=== PATIENT | female | born 1990 | race Caucasian/White ===

== ENCOUNTER 2020-08-28 10:17 | Emergency (ER) | payer OTHER, SELFPAY ==
[2020-08-28 10:27] VITALS: BP 99/82; PULSE 83; RESP 16; TEMP 35.6; O2SAT 99
[2020-08-28 10:37] VITALS: BP 99/82; PULSE 83; RESP 16; TEMP 35.6; O2SAT 99
--- NOTE | 2020-08-28 10:38 | ED.GENADULT ---
HPI - General Adult General Chief complaint: Skin/Abscess/Foreign Body Stated complaint: Swollen left side of face Time Seen by Provider: 08/28/20 10:39 Source: patient, family and RN notes reviewed Mode of arrival: ambulatory Limitations: no limitations History of Present Illness HPI narrative: 30 year old female who [facility] with 3-day history of abscess to her left lateral neck below jaw line. Patient states that area was original a pimple which she picked that has increased in size with discomfort and swelling. She states that she applied Prid to abscess area and it developed a center scab which she pulled off with some bloody drainage noted from wound. Patient was just at [facility] for detox and received oral antibiotic of Augmentin which she has been taking for the past 2 days. Patient signed herself out of [place] and she is suppose to go to [facility] to start their program on Sunday. She admits to using IV heroin since leaving [place]. MD complaint: abscesses left side of neck Onset (ago): day(s) (3) Location: neck (left side) Severity: moderate and severe Severity scale (1-10): 8 Quality: aching Pain Consistency: constant Treatments prior to arrival: other (antibiotic of Augmentin for 2 days also applied Prid to abscess.) Related Data Home Medications Medication Instructions Recorded Confirmed amoxicillin-pot clavulanate 1 tablet PO Q12H 08/28/20 08/28/20 [Augmentin] Allergies Allergy/AdvReac Type Severity Reaction Status Date / Time No Known Allergies Allergy Verified 08/28/20 12:15 Review of Systems Review of Systems: Narrative: CONSTITUTIONAL: Denies any known fever, chills, or sweats. EYES: Denies visual changes, redness, or discharge. ENT: Denies rhinorrhea, congestion, sore throat, or otalgia. CARDIOVASCULAR: Denies chest pain, palpitations, or edema. RESPIRATORY: Denies cough or dyspnea. GASTROINTESTINAL: Denies abdominal pain, nausea, vomiting, or diarrhea. GENITOURINARY: Denies dysuria or hematuria. SKIN: Denies rash or itching Positive for 3cm diameter abscess to her left lateral neck with center yellowish where she had pulled scab off,has red enlarged lymph node chain which is firm to palpation under abscess into lower neck. MUSCULOSKELETAL: Denies back pain, joint pain, or myalgia. NEUROLOGIC: Denies headache, numbness, or weakness. PSYCHIATRIC: Positive for anxiety or depression. All systems reviewed & are unremarkable except as noted in HPI and below PMFSH Past Medical History Medical History (Updated 08/30/20 @ 19:42 by Janine Tompkins NP) Substance abuse Family History Family History (Updated 08/30/20 @ 19:56 by Janine Tompkins NP) Other Hypertension Social History Social History (Updated 08/30/20 @ 19:57 by Janine Tompkins NP) Tobacco type: e-cigarettes/vaping Alcohol intake: current Substance use: current Substance use type: heroin Living arrangements: with friend(s) Gender identity (if verbalized by the patient): Female Comments At time of signature agree with nursing documentation of past medical surgical social and family history. There is no relevant family history pertinent to presenting complaint. Exam Narrative: Exam Narrative: GENERAL: Well-appearing, well-nourished, and in no acute distress. HEAD: Normocephalic, atraumatic. EYES: PERRLA and EOMI. ENT: Nares clear, no rhinorrhea or epistaxis. Mucous membranes moist. NECK: Supple red swollen firm lymphadenopathy below 3cm circular abscess on left neck CHEST: Clear to auscultation. No respiratory distress. SAO2 99% on room air HEART: Regular rate and rhythm. No murmur heard. Normal peripheral pulses. ABDOMEN: Soft, nontender, nondistended, normal active bowel sounds. EXTREMITIES: Normal range of motion. No edema. SKIN: Warm, dry, 3cm circular abscess to left lateral neck below jaw which has yellow center where patient states she pulled a scab off, tissue has induration. no drainage noted.
--- NOTE | 2020-08-28 10:51 | PC.NURSE ---
[id number] was able to manufacturing storeperson at home to check information on abx. was augmentin [id number]
== END 2020-08-28 11:10 | disposition short-term general hospital (02) ==
LOC: EXPCOLL 10:23
PROVIDERS: Emergency Provider Registered Nurse
DX: L02.11 Cutaneous abscess of neck (principal); F17.200 Nicotine dependence, unspecified, uncomplicated
CPT/HCPCS: 99202; G0463

== ENCOUNTER 2020-08-28 11:44 | Emergency (ER) | payer OTHER, SELFPAY ==
[2020-08-28 11:46] VITALS: BP 111/67; PULSE 69; RESP 20; TEMP 36.2; O2SAT 99
--- NOTE | 2020-08-28 12:59 | ED.SKABFB ---
HPI - Skin/Abscess/Foreign Bdy General Chief complaint: Skin/Abscess/Foreign Body Stated complaint: skin Time Seen by Provider: 08/28/20 12:22 Source: patient Mode of arrival: ambulatory Limitations: no limitations History of Present Illness HPI narrative: Patient is a 30-year-old female complaining of tender left swollen area, abscess on the left anterior neck, started 3 days ago, was seen in urgent care 2 days ago was placed on Augmentin, which he started taking yesterday. Patient states that she feels like a lymph node swollen to. Denies any lip, tongue or throat swelling. Denies dysphagia. Denies fever or chills. Denies chest pain or shortness of breath. Related Data Home Medications Medication Instructions Recorded Confirmed amoxicillin-pot clavulanate 1 tablet PO Q12H 08/28/20 08/28/20 [Augmentin] Allergies Allergy/AdvReac Type Severity Reaction Status Date / Time No Known Allergies Allergy Verified 08/28/20 12:15 Review of Systems Review of Systems: All systems reviewed & are unremarkable except as noted in HPI and below PMFSH Social History Social History Gender identity (if verbalized by the patient): Female Comments Past medical history: None Family history: Hypertension Social history: Vapes, no EtOH use, IV drug use Exam Const: General: no acute distress and alert Orientation/consciousness: patient oriented x3 HENMT: General nose exam: Normal nares present and no nasal discharge noted Face and sinus: normal facial exam Mouth: Yes lip normal and Yes moist mucous membranes Eyes: Conjunctivae: conjunctivae normal Neck: Neck: no meningeal signs and lymphadenopathy Other: Erythematous, tender, swollen, fluctuant area measuring approximately 3 x 4 cm left anterior neck Resp: Effort & Inspection: normal respiratory effort Neuro: General: patient oriented x3, moves all extremities and no meningeal signs Extrem: General: normal to inspection Psych: Mental Status: mental status grossly normal Affect: normal affect Attitude: cooperative Course Vital Signs Vital signs: Vital Signs Temperature 36.2 C L 08/28/20 11:46 Pulse Rate 69 08/28/20 11:46 Respiratory Rate 20 08/28/20 11:46 Blood Pressure 111/67 08/28/20 11:46 Pulse Oximetry 99 08/28/20 11:46 Temperature 36.2 C L 08/28/20 11:46 Pulse Rate 69 08/28/20 11:46 Respiratory Rate 20 08/28/20 11:46 Blood Pressure 111/67 08/28/20 11:46 Pulse Oximetry 99 08/28/20 11:46 MDM - Skin/Abscess/Foreign Bdy MDM Narrative Medical decision making narrative: Patient refused I&D of her left subcutaneous abscess of her neck. Patient states that she will continue her antibiotic treatment and if it gets worse she will come back. Differential Diagnosis Differential diagnosis: Likely abscess of skin or subcutaneous tissue, urticaria, cellulitis and contact dermatitis Discharge Plan Discharge Clinical Impression: Abscess of skin or subcutaneous tissue Qualifiers: Site of cutaneous abscess: neck Qualified Code(s): L02.11 - Cutaneous abscess of neck Patient Disposition: Home, Self-Care Condition: Stable Instructions: Abscess (ED) Prescriptions: No Action amoxicillin-pot clavulanate [Augmentin] 875-125 mg Tablet 1 tablet PO Q12H RF: 0 Follow-up/Referrals: PHYSICIAN,[employer] [facility]ER [Primary Care Provider] - 08/30/20 Time of Disposition: 13:06
[2020-08-28 14:07] VITALS: BP 111/67; PULSE 69; RESP 20; TEMP 36.2; O2SAT 99
== END 2020-08-28 13:32 | disposition home or self-care (01) ==
PROVIDERS: Emergency Provider Emergency Medicine
DX: L02.11 Cutaneous abscess of neck (principal)
CPT/HCPCS: 96372; 99283

== ENCOUNTER 2020-10-20 11:05 | Outpatient (CLI) | payer OTHER, SELFPAY ==
[2020-10-20 12:26] LABS: Alanine Aminotransferase 46 U/L (4-35); Albumin Level 4.2 g/dL (3.5-5.1); Alkaline Phosphatase 68 U/L (38-126); Anion Gap 7 mmol/L (8-16); Aspartate Amino Transferase 34 U/L (14-36); Bilirubin,Total 0.3 mg/dL (0.2-1.3); Blood Urea Nitrogen 20 mg/dL (7-17); Calcium 9.4 mg/dL (8.4-10.2); Carbon Dioxide 26 mmol/L (22-30); Chloride 100 mmol/L (98-107); Cholesterol 179 mg/dL (0-200); Estimated Glomerular Filt Rate > 60; Glucose 126 mg/dL (65-110); HDL Direct 49 mg/dL; Potassium 4.5 mmol/L (3.4-5.0); Sodium 133 mmol/L (137-145); Triglycerides 122 mg/dL (<150)
[2020-10-20 12:37] LABS: LDL Cholesterol Direct 87 mg/dL
[2020-10-20 20:06] LABS: Hepatitis C Virus Antibody Reactive (Negative)
[2020-10-21 09:20] LABS: Rapid Plasma Reagin Non-Reactive (NonReactive)
[2020-10-24 14:25] LABS: Hepatitis C RNA, Quant PCR 2340000 IU/mL
== END 2020-10-20 11:06 | disposition home or self-care (01) ==
LOC: ANHLAB 11:07
PROVIDERS: PCP Nurse Practitioner; Visit Provider Nurse Practitioner
DX: F41.8 Other specified anxiety disorders (principal); Z72.51 High risk heterosexual behavior; Z13.220 Encounter for screening for lipoid disorders; F19.90 Other psychoactive substance use, unspecified, uncomplicated
CPT/HCPCS: 36415; 80053; 80061; 82306; 84443; 86592; 86803; 87522; 99212; G0463

== ENCOUNTER 2021-05-27 19:02 | Inpatient (IN) | payer MEDICAID, SELFPAY ==
[2021-05-27] VITALS (13 sets, daily range): BP systolic 117–119; BP diastolic 57–60; PULSE 97–113; RESP 20–41; TEMP 37.6–38.2; O2SAT 88–97
--- NOTE | ~2021-05-27 | XR_ITS ---
EXAMINATION: XR chest port-a-cath/central DATE: 05/27/2021 22:50 INDICATION: Central line placement. TECHNIQUE: A single frontal view of the chest was obtained. COMPARISON: Chest single view at 7:35 PM FINDINGS: There are airspace opacities in all lung zones bilaterally, right worse than left with rela tive sparing of left lung apex. No pleural effusion or pneumothorax. The heart size is normal. A righ t internal jugular central venous catheter is seen with tip in the right atrium. There is an old heal ed fracture of right clavicle. IMPRESSION: 1. Central line tip in right atrium. 2. Stable diffuse lung disease, consistent with pulmonary edema versus pneumonia. Reviewed, dictated and finalized at location A. IMPRESSION: 1. Central line tip in right atrium. 2. Stable diffuse lung disease, consistent with pulmonary edema versus pneumoni a.
--- NOTE | ~2021-05-27 | XR_ITS ---
EXAMINATION: XR chest 1V portable INDICATION: Increased oxygen needs TECHNIQUE: Portable AP chest at 0800 hours COMPARISON: 05/27/2021 FINDINGS: Diffuse airspace opacities persist in all lung zones, right greater than left, without sign ificant change. Again noted is mild sparing of the left lung apex. There is no pleural effusion or pn eumothorax. The cardiomediastinal silhouette is stable. A right internal jugular central venous katerina ter ends with its tip in the right atrium. A healed right clavicle fracture is noted. IMPRESSION: 1. Stable diffuse lung disease, consistent with pneumonia and/or pulmonary edema. Reviewed, dictated and finalized at location A. IMPRESSION: 1. Stable diffuse lung disease, consistent with pneumonia and/or pulmonary reynaldo a.
--- NOTE | ~2021-05-27 | XR_ITS ---
EXAMINATION: XR chest 1V portable DATE: 05/31/2021 13:28 INDICATION: Respiratory distress. TECHNIQUE: A single frontal view of the chest was obtained. COMPARISON: Chest single view 05/31/2021 FINDINGS: There are airspace opacities in all lung zones bilaterally with relative sparing at left ifeoma ng apex. There is cavitation in right middle lobe. No pleural effusion or pneumothorax. The heart siz e is normal. The endotracheal tube tip is 4. Centimeters above the kenna. The nasogastric tube tip i s beyond the inferior margin of the radiograph, but at least to the stomach. A right upper extremity peripherally inserted central venous catheter (PICC) is seen with tip at the superior cavoatrial junc tion. IMPRESSION: 1. Stable diffuse lung disease, consistent with necrotizing pneumonia. Reviewed, dictated and finalized at location A.
--- NOTE | ~2021-05-27 | CT_ITS ---
EXAMINATION: CTA chest PE abdomen pel DATE: 05/28/2021 12:47 INDICATION: Shortness of breath, abnormal liver function tests TECHNIQUE: Computed tomography angiography (CTA) of the chest was performed with 100 mL Omnipaque-350 intravenous contrast timed to evaluate the pulmonary arteries. Subsequent postcontrast images of the abdomen and pelvis are obtained. Coronal maximum intensity projection 3D-reconstructions were create d by the technologist. The dose-length product (DLP) was 1404.71 mGy-cm. Automated exposure control a nd iterative reconstruction technique were employed. COMPARISON: None. FINDINGS: CTA CHEST: The pulmonary arteries are well-opacified. No pulmonary embolism is identified. A right in ternal jugular catheter ends with its tip in the proximal right atrium. There are diffuse interstitia l and airspace opacities throughout the right lung and in a patchy distribution throughout the left l clarence. There appear to be areas of interlobular septal thickening. There is no pleural effusion or pneu mothorax. There is mediastinal lymphadenopathy. The heart size is normal. ABDOMEN/PELVIS CT: The liver, spleen, pancreas, gallbladder, and adrenal glands are normal. The kidne ys are unremarkable. No pathologically enlarged abdominal or pelvic lymph nodes are identified. There is no free intraperitoneal gas or evidence of bowel obstruction. There is liquid stool in the colon to the level of the rectum which may reflect diarrhea. A Malcolm catheter is present in the urinary jenny dder. IMPRESSION: 1. No pulmonary embolus identified. 2. Diffuse lung disease, left greater than right which may reflect atypical pneumonia and/or hypersen sitivity pneumonitis which may be drug induced and/or pulmonary edema. 3. No acute abnormality of the abdomen or pelvis. Reviewed, dictated and finalized at location A. IMPRESSION: 1. No pulmonary embolus identified. 2. Diffuse lung disease, left greater than right which may reflect atypical pne umonia and/or hypersensitivity pneumonitis which may be drug induced and/or pul monary edema. 3. No acute abnormality of the abdomen or pelvis.
--- NOTE | ~2021-05-27 | XR_ITS ---
EXAMINATION: XR chest 1V portable DATE: 05/31/2021 00:45 INDICATION: Respiratory failure. TECHNIQUE: A single frontal view of the chest was obtained. COMPARISON: Chest single view 05/30/2021 FINDINGS: There are airspace opacities in all lung zones bilaterally with relative sparing of left ifeoma ng apex. There is cavitation in right middle lobe. No pleural effusion or pneumothorax. The heart siz e is normal. A right upper extremity peripherally inserted central venous catheter (PICC) is seen wit h tip in the superior vena cava. The endotracheal tube tip is 4.0 cm above the kenna. The nasogastri c tube tip is beyond the inferior margin of the radiograph, but at least to the stomach. IMPRESSION: 1. Diffuse lung disease with mild worsening on the left, consistent with necrotizing pneumonia. Reviewed, dictated and finalized at location A. IMPRESSION: 1. Diffuse lung disease with mild worsening on the left, consistent with necrot izing pneumonia.
--- NOTE | ~2021-05-27 | XR_ITS ---
EXAMINATION: XR chest port-a-cath/central INDICATION: Assess central line position TECHNIQUE: Portable AP chest at 0440 hours COMPARISON: 05/28/2021 FINDINGS: The right internal jugular catheter appears to be retracted ending with its tip in the soft tissues of the right neck. Diffuse airspace opacities persist throughout all lung zones, right great er than left, with slight worsening in the left upper lung zone. The cardiomediastinal silhouette is stable. There is no pleural effusion or pneumothorax. IMPRESSION: 1. Right internal jugular central venous catheter with its tip appearing to be positioned in the soft tissues of the right neck. Recommend removal and replacement if necessary. 2. Diffuse lung disease with slight worsening in the left upper lung zone, consistent with pneumonia and/or pulmonary edema and/or hypersensitivity pneumonitis. Reviewed, dictated and finalized at location A. IMPRESSION: 1. Right internal jugular central venous catheter with its tip appearing to be positioned in the soft tissues of the right neck. Recommend removal and replace ment if necessary. 2. Diffuse lung disease with slight worsening in the left upper lung zone, cons istent with pneumonia and/or pulmonary edema and/or hypersensitivity pneumoniti s.
--- NOTE | ~2021-05-27 | XR_ITS ---
EXAMINATION: XR chest PICC line INDICATION: PICC insertion TECHNIQUE: Portable AP chest at 1003 hours COMPARISON: 0440 hours FINDINGS: The right internal jugular catheter has been completely removed. A right upper extremity PI CC ends with its tip at the superior cavoatrial junction. Diffuse bilateral opacities persist without significant change. There is no pleural effusion or pneumothorax. The cardiomediastinal silhouette i s normal. IMPRESSION: 1. Right upper extremity PICC ending with its tip at the superior cavoatrial junction and removal of the right internal jugular catheter. Otherwise, no significant change. Reviewed, dictated and finalized at location A. IMPRESSION: 1. Right upper extremity PICC ending with its tip at the superior cavoatrial ju nction and removal of the right internal jugular catheter. Otherwise, no signif icant change.
--- NOTE | ~2021-05-27 | XR_ITS ---
EXAMINATION: XR chest 1V portable DATE: 05/27/2021 19:44 INDICATION: Shortness of breath. TECHNIQUE: A single frontal view of the chest was obtained. COMPARISON: None. FINDINGS: There are airspace opacities throughout the lungs bilaterally, right worse than left, with relative sparing of left lung apex. No pleural effusion or pneumothorax. The heart size is normal. Th ere is an old healed fracture of right clavicle. IMPRESSION: 1. Diffuse lung disease, consistent with pulmonary edema versus pneumonia. Reviewed, dictated and finalized at location A.
--- NOTE | ~2021-05-27 | XR_ITS ---
EXAMINATION: XR chest 1V portable DATE: 05/30/2021 05:30 INDICATION: Respiratory failure. TECHNIQUE: A single frontal view of the chest was obtained. COMPARISON: Chest single view 05/29/2021, chest CT 05/28/2021 FINDINGS: There are airspace opacities in all lung zones bilaterally, right worse than left. There is cavitation in right middle lobe. No pleural effusion or pneumothorax. The heart size is normal. A ri ght upper extremity peripherally inserted central venous catheter (PICC) is seen with tip at superior cavoatrial junction. There is an old healed right rib fracture. IMPRESSION: 1. Stable diffuse lung disease, consistent with necrotizing pneumonia. Reviewed, dictated and finalized at location A.
--- NOTE | 2021-05-27 19:09 | PC.NURSE ---
pt reports she does opiates, but has been too sick to use.
--- NOTE | 2021-05-27 19:27 | ECG_ITS ---
Measurements Intervals [place] Rate: 101 P: 55 AL: 146 QRS: 65 QRSD: 117 T: 30 QT: 347 QTc: 451 Interpretive Statements SINUS TACHYCARDIA POSSIBLE RIGHT ATRIAL ENLARGEMENT [0.25mV P WAVE] INCOMPLETE RIGHT BUNDLE BRANCH BLOCK [90+ ms QRS DURATION, TERMINAL R IN V1/V2, 40+ ms S IN I/aVL/V4/V5/V6] NONSPECIFIC ST & T-WAVE ABNORMALITY ABNORMAL ECG NO PREVIOUS ECG AVAILABLE FOR COMPARISON Electronically Signed On 05-28-2021 16:41:47 CDT by Aaron Meeks M.D.
--- NOTE | 2021-05-27 19:46 | ED.SOB ---
HPI - SOB/Dyspnea General Chief Complaint: Shortness of Breath/Dyspnea Stated Complaint: I can't breath Time Seen by Provider: 05/27/21 19:26 History of Present Illness HPI Narrative: Patient is a 30-year-old female who presents to the ER with shortness of breath. Ongoing for 5 days. Patient reports her and her roommates all got sick at the same time and they got better but she continued to worsen. Unvaccinated against Covid. No known Covid exposures. Reports fevers and chills. Has pain in her chest. Reports resting and exertional dyspnea. Endorses cough. Reports history of IV drug abuse that she uses heroin. Reports last use was 4 days ago as she has been too weak to want to use since then. Denies rashes or abscesses to the arms. Patient endorses poor p.o. intake. Related Data Home Medications Medication Instructions Recorded Confirmed No Home Medications 05/28/21 05/28/21 Allergies Allergy/AdvReac Type Severity Reaction Status Date / Time No Known Allergies Allergy Verified 08/28/20 12:15 Review of Systems Review of Systems: All systems reviewed & are unremarkable except as noted in HPI and below Constitutional: Constitutional: Reports chills, Reports fever(s) and Reports weakness ENT: Denies nasal congestion and Denies sore throat Cardiovascular: Cardiovascular: Reports chest pain, Denies rapid heart rate and Denies radiating jaw, neck or arm pain Respiratory: Respiratory: Reports cough, Reports dyspnea and Denies wheezing Gastrointestinal: Gastrointestinal: Denies abdominal pain, Denies diarrhea, Denies nausea and Denies vomiting Genitourinary: Genitourinary: Denies nocturia and Denies dysuria Comments: dark urine Integumentary/Breasts: Skin/Breast: Denies erythema, Denies rash and Denies skin ulcer Neurologic: Denies headache(s), Denies focal weakness and Denies numbness PMFSH Past Medical History Medical History Substance abuse Surgical History Surgical History No pertinent past surgical history Family History Family History Other Hypertension Social History Social History Smoking packs per day: 1 Smoking cigarettes per day: 20.0 Smoking status: Current every day smoker Tobacco type: cigarettes Alcohol intake: current Substance use: current Substance use type: marijuana, crack/cocaine, heroin, amphetamines, opiates, painkillers and IV drugs Gender identity (if verbalized by the patient): Female Spiritual care concerns: No Exam Narrative: GENERAL: Fatigued-appearing, well-nourished, and in no acute distress. HEAD: Normocephalic, atraumatic. EYES: PERRL and EOMI. ENT: Mucous membranes moist. CHEST: Clear to auscultation. No respiratory distress. HEART: Tachycardic and regular. No murmur. Normal peripheral pulses. ABDOMEN: Soft, nontender, nondistended. EXTREMITIES: Normal range of motion. No edema. SKIN: Warm, dry, scattered bruises from IV drug use. NEURO: Alert and oriented x3. PSYCH: Normal mood and affect. Course Reevaluation(s) Reevaluation #1: Patient unfortunately had prolonged stay in the ER without IV access due to the fact that she is a difficult stick due to IV drug abuse and likely dehydration. Additionally there are multiple critical patients in the department so central venous catheter placement was delayed. However line was obtained. Blood cultures being drawn at 20-minute intervals to adequately assess for possible endocarditis given IV drug abuse history and multifocal pneumonia. Patient will be started on vancomycin and Zosyn. Date: 05/27/21 Time: 23:00 Reevaluation #2: Patient accepted to hospitalist service. Discussed case with Dr. Daigle with the ICU. Does not feel patient requires ICU at this time his lab work appears reasonably norm
--- NOTE | 2021-05-27 20:04 | PC.NURSE ---
This nurse attempted IV access, unsuccessful. Patient stated you only get one chance. Patient informed of need for IV placement. ERP notified, US certified RN will place IV.
[2021-05-27 20:34] LABS: SARS-CoV-2 RNA PCR Negative
--- NOTE | 2021-05-27 21:17 | PC.NURSE ---
Patient tough stick, US unsuccessful. ERP notified. ERP to place EJ IV.
[2021-05-27 21:47] LABS: Add Urine Microscopic? YES; Appearance Urine Cloudy (Clear); Bilirubin Urine Negative (Negative); Blood Urine 2+ (Negative); Color Urine Amber (Yellow); Glucose Urine UA Negative (Negative); Ketones Urine Negative (Negative); Leukocyte Esterase Ur Negative LEU/UL (Negative); Nitrate Urine Negative (Negative); Protein Urine 2+ mg/dL (Negative); RBC Urine 0-2 /hpf (0-2); Specific Grav Ur 1.015 (1.001-1.035); Squamous Epithelial Cell Urine Few /hpf (Few)
--- NOTE | 2021-05-27 21:51 | PC.NURSE ---
EJ IV attempt by ERP, unsuccessful. Patient gave consent for central line placement.
--- NOTE | 2021-05-27 21:55 | PC.NURSE ---
Patient requesting a hospital bed, this nurse informed her that that bed is assigned to another patient at this time. Patient states she wants to speak with sports physical therapist. I spoke with citrus peeler and informed her that patient is requesting to speak with her.
--- NOTE | 2021-05-27 21:58 | PC.NURSE ---
Patient placed on 2L via NC, her O2 dropped to 88% on RA.
[2021-05-27] MEDS: SODIUM CHLORIDE 0.9% IV 1,000 ML 999 ML IV CONT ×2 (23:00→23:37)
[2021-05-27 23:09] LABS: Basophils Percent Auto 0.4 % (0.2-1.2); Eosinophils Percent Auto 0.2 % (0-4.4); Hematocrit 31.7 % (37.0-47.0); Hemoglobin 10.8 g/dL (12.0-15.0); Immature Granulocyte Absolute 0.15 K/mm3 (0.00-0.031); Immature Granulocyte Percent A 2.8 % (0-0.5); Lymphocytes Absolute Auto 0.53 K/mm3 (0.9-3.2); Lymphocytes Percent Auto 9.9 % (18.3-44.2); Mean Corpuscular HGB Conc 34.1 g/dl (32-36); Mean Corpuscular Hemoglobin 29.1 pg (26-34); Mean Corpuscular Volume 85.4 fl (80-100); Mean Platelet Volume 10.9 fl (7.4-10.4); Monocytes Absolute Auto 0.1 K/mm3 (0.1-0.6); Monocytes Percent Auto 1.1 % (2.6-8.5); Neutrophils Absolute Auto 4.6 K/mm3 (1.3-6.7); Neutrophils Percent Auto 85.6 % (45.5-73.1); Platelet Count Result 272 k/mm3 (150-375); Red Blood Count 3.71 M/mm3 (4.2-5.4); Red Cell Distribution Width 13.2 % (11.5-14.5); White Blood Count 5.4 K/mm3 (4.5-10.0)
[2021-05-27 23:19] LABS: Alanine Aminotransferase 80 U/L (4-35); Albumin Level 2.9 g/dL (3.5-5.1); Alkaline Phosphatase 87 U/L (38-126); Anion Gap 8 mmol/L (8-16); Aspartate Amino Transferase 449 U/L (14-36); Bilirubin,Total 2.2 mg/dL (0.2-1.3); Blood Urea Nitrogen 17 mg/dL (7-17); Calcium 7.4 mg/dL (8.4-10.2); Carbon Dioxide 26 mmol/L (22-30); Chloride 95 mmol/L (98-107); Estimated CRCL calculation 85 ml/min; Estimated Glomerular Filt Rate > 60; Glucose 93 mg/dL (65-110); Potassium 2.9 mmol/L (3.4-5.0); Sodium 129 mmol/L (137-145)
[2021-05-27 23:24] LABS: Lactic Acid Reflex 2.6 mmol/L (0.7-2.1)
[2021-05-27 23:28] LABS: INR 1.8; NT Pro B Type Natriuretic Pept 579 pg/mL (5-100)
[2021-05-27 23:29] LABS: Partial Thromboplastin Time 34.9 SECONDS (22.3-36.8)
[2021-05-28] VITALS (43 sets, daily range): BP systolic 103–124; BP diastolic 49–76; PULSE 65–115; RESP 24–55; TEMP 36.1–39.6; O2SAT 78–97; BMI 27.8
--- NOTE | 2021-05-28 | ECHO_ITS ---
Patient Info Name: Shireen Flowers Age: 30 years : 1990 Gender: Female Ht: 63 in Wt: 156 lbs BSA: 1.79 m2 HR: 109 bpm BP: 124 / 49 mmHg Technical Quality: Good Exam Date: 05/28/2021 7:26 AM Exam Location: [facility] Patient Status: Inpatient Admit Date: 05/27/2021 Staff Ordering Physician: Delgado Ibarra MD [employer] Specialist: Marlena Winkler RDCS Attending Provider: Jennifer Jones MD Referring Physician: Fred MUNOZ; Exam Type: CA echo doppler color flow Study Info Indications I33.0 - Acute and subacute infective endocarditis Complete two-dimensional, color flow and Doppler transthoracic echocardiogram is performed. Summary 1. Complete two-dimensional, color flow and Doppler transthoracic echocardiogram is performed. 2. Left ventricular chamber dimension is normal. 3. Left ventricular systolic function is normal, estimated at 60-65%. 4. The left ventricular diastolic function is grade I diastolic dysfunction. 5. E/e' 6 is not elevated. 6. There is trace mitral valve regurgitation. 7. Small mobile echogenic mass measuring 0.35 cm x 0.49 cm attached to posterior mitral valve leaflet suggests calcified chordate tendinae or vegetation. Consider CAMERON or cardiac MRI if clincally indicated. 8. Small mobile circumscribed echogenic mass measuring 0.62 cm x 0.27 cm attached to septal leaflet of tricuspid valve suggests calcified chordae tendinae or vegetation. Consider CAMERON or cardiac MRI if clinically indicated. 9. There is trace tricuspid valve regurgitation. 10. No pulmonary hypertension, estimated pulmonary arterial systolic pressure is 30 mmHg. Left Ventricle E/e' 6 is not elevated. Left ventricular chamber dimension is normal. Left ventricular systolic function is normal, estimated at 60-65%. The left ventricular diastolic function is grade I diastolic dysfunction. Right Ventricle Right ventricular systolic function is normal and with normal TAPSE 2.4 cm. Right ventricular chamber dimension is normal. Left Atria Left atrial chamber dimension is normal. Right Atria Right atrial chamber dimension is normal. Aortic Valve The aortic valve is trileaflet. There is no aortic valve stenosis. There is no aortic valve regurgitation. Pulmonic Valve There is no pulmonic regurgitation. Mitral Valve Small mobile echogenic mass measuring 0.35 cm x 0.49 cm attached to posterior mitral valve leaflet suggests calcified chordate tendinae or vegetation. Consider CAMERON or cardiac MRI if clincally indicated. There is no mitral valve stenosis. There is trace mitral valve regurgitation. Tricuspid Valve Small mobile circumscribed echogenic mass measuring 0.62 cm x 0.27 cm attached to septal leaflet of tricuspid valve suggests calcified chordae tendinae or vegetation. Consider CAMERON or cardiac MRI if clinically indicated. There is trace tricuspid valve regurgitation. No pulmonary hypertension, estimated pulmonary arterial systolic pressure is 30 mmHg. Pericardium/Pleural There is no pericardial effusion. Inferior Vena Cava Normal inferior vena cava with >50% collapse upon inspiration consistent with normal right atrial pressure, 5 mmHg. Aorta The aortic root size at the sinus of Valsalva is normal. Left Ventricular Outflow Tract Name Value Normal LVOT 2D
[2021-05-28 00:10] LABS: Amphetamine Screen Urine Negative (Negative); Barbiturate Screen Urine Negative (Negative); Benzodiazepines Screen Urine Negative (Negative); Cannabinoid Screen Urine Negative (Negative); Cocaine Screen Urine Negative (Negative); Methadone Screen Urine Negative (Negative); Opiate Screen Urine Negative (Negative); Phencyclidine Screen Urine Negative (Negative)
--- NOTE | 2021-05-28 00:35 | PM.IMHP ---
H&P: HPI History of Present Illness Date/Time: 05/28/21 00:35 Chief Complaint: Shortness of breath. Narrative: This is a 30-year-old female with past medical history significant for hepatitis-C, IV drug use, tobacco dependence. Patient presents to the emergency room due to altered mental status, patient has been staying in bed for most of the time during the day, shortness of breath, productive cough, noisy breathing, generalized weakness, fatigue, fevers, chills, shivering, most of the history has been obtained from on patient's boyfriend who is at bedside. Patient also states that her but the hurt all over has not been eating in the last 8 days or so, no nausea, no vomiting, no abdominal pain. Preliminary workup was significant for chest x-ray with diffuse lung disease, sodium of 129, AST 449, ALT 80, lactic acid of 2.6. Patient required central line placement in the emergency room due to low blood pressures as well. Patient is been admitted for further evaluation, management and treatment. Review of Systems Review of Systems: Shortness of breath, generalized weakness, poor appetite, shivering. ROS unobtainable: Yes unobtainable due to medical condition and unobtainable due to mental status Constitutional: Constitutional: Reports body ache(s), Reports chills, Reports fatigue, Reports fever(s), Reports malaise, Reports poor appetite and Reports weakness PMFSH Past Medical History Medical History (Updated 05/28/21 @ 02:07 by Jennifer Jones MD) Substance abuse Surgical History Surgical History (Updated 05/27/21 @ 19:48 by Delgado Ibarra MD) No pertinent past surgical history Family History Family History (Updated 08/30/20 @ 19:56 by Janine Tompkins NP) Other Hypertension Social History Social History (Updated 08/30/20 @ 19:57 by Janine Tompkins NP) Smoking packs per day: 1 Smoking cigarettes per day: 20.0 Smoking status: Current every day smoker Tobacco type: cigarettes Alcohol intake: current Substance use: current Substance use type: marijuana, crack/cocaine, heroin, amphetamines, opiates, painkillers and IV drugs Gender identity (if verbalized by the patient): Female Spiritual care concerns: No Meds Home Medications and Allergies Home Medications Medication Instructions Recorded Confirmed Type No Home Medications 05/28/21 05/28/21 History Allergies Allergy/AdvReac Type Severity Reaction Status Date / Time No Known Allergies Allergy Verified 08/28/20 12:15 Vital Signs Vital Signs - 24 hr 05/27/21 19:05 05/27/21 19:37 05/27/21 20:49 Temperature 99.7 F H Pulse Rate 109 H 97 100 Respiratory Rate 26 H 25 H Blood Pressure 118/59 L Pulse Oximetry 88 L 97 05/27/21 20:50 05/27/21 21:00 05/27/21 21:15 Temperature Pulse Rate 104 H 105 H Respiratory Rate 20 37 H Blood Pressure Pulse Oximetry 97 05/27/21 22:47 05/27/21 23:00 05/27/21 23:15 Temperature Pulse Rate 113 H 110 H 104 H Respiratory Rate 33 H 41 H 27 H Blood Pressure Pulse Oximetry 05/27/21 23:25 05/27/21 23:26 05/27/21 23:30 Temperature 100.8 F H Pulse Rate 103 H 101 H 102 H Respiratory Rate 29 H 35 H 39 H Blood Pressure 119/57 L Pulse Oximetry 88 L 05/27/21 23:32 Temperature Pulse Rate 101 H Respiratory Rate 33 H Blood Pressure 117/60 Pulse Oximetry 90 Exam Narrative: Patient is laying in a stretcher. Const: General: comfortable, no acute distress, well developed, ill appearing acutely and patient obtunded Nutritional Appearance: average body habitus Orientation/consciousness: oriented to person and oriented to place Limitations: altered mental status HENMT: Head: normal to inspection, normocephalic and atraumatic Ears: hearing grossly normal bilaterally General nose exam: Normal external nose present Face and sinus: normal facial exam Mouth: Yes dry mucous membranes Eyes: General: appearance normal, both eyes and all relat
--- NOTE | 2021-05-28 01:21 | ADMGEN ---
This patient, Shireen Flowers, was admitted to IMU Room 202-. Patient/family oriented to hospital policies and general routines including ID bracelet, bed and alarms, visiting hours, pain management, procedures, bathroom and other care routines, personal items, smoking policy, room service/diet, and visiting hours. Information on how to activate the Rapid Response Team has been discussed. Patient/Family are encouraged to report perceived risks to care and to ask questions if they do not understand what they are told or what they should do.
[2021-05-28] MEDS: IPRATROPIUM BR 0.02% INH SOLN 0.5 MG/2.5 ML VIAL INHALATION ×5 (01:30→19:48)
[2021-05-28] MEDS: SODIUM CHLORIDE 0.9% IV 1,000 ML 125 ML IV CONT (01:32)
[2021-05-28] MEDS: ALBUTEROL SULFATE NEB 2.5 MG/0.5 ML INH INHALATION ×6 (01:32→19:48)
[2021-05-28] MEDS: WATER FOR IRRIGATION, STERILE 1,000 ML BOTTLE 1000 ML (01:35)
[2021-05-28 02:16] LABS: Reflex Lactic Acid Yes or No Add Lactic
[2021-05-28] MEDS: KCL 40 MEQ/WATER 100 ML 100 ML 25 ML IVPB (02:44)
[2021-05-28 03:05] LABS: Lactic Acid 2.2 mmol/L (0.7-2.1)
[2021-05-28 04:09] LABS: Alveolar/Arterial O2 Gradient 555.1 mmHg; Base Excess ABG -0.3 mEq/l (+/-2.0); Carboxyhemoglobin 0.2 % THb (0-2.0); Fractional Inspired Oxygen 90 %; HCO3 ABG 22.7 mEq/l (22.0-26.0); Methemoglobin ABG 0.4 %THb (0-1.5); Oxygen Saturation ABG 90.3 % (95.0-100.0); PCO2 ABG 31.9 mmHg (35.0-45.0); PO2 ABG 53.9 mmHg (80.0-100.0); Total Hemoglobin 11.5 g/dL (12.0-18.0); pH ABG 7.471 (7.350-7.450)
[2021-05-28 04:10] LABS: Device HIGH FLOW THERAPY; Modified Allen's Test Pass; Oxyhemoglobin 86.4 % THb (90.0-100.0); Site Drawn LEFT RADIAL
[2021-05-28 04:18] LABS: Hemoglobin 10.1 g/dL (12.0-15.0); Mean Corpuscular HGB Conc 33.7 g/dl (32-36); Mean Corpuscular Hemoglobin 29.2 pg (26-34); Mean Corpuscular Volume 86.7 fl (80-100); Mean Platelet Volume 10.9 fl (7.4-10.4); Platelet Count Result 229 k/mm3 (150-375); Red Blood Count 3.46 M/mm3 (4.2-5.4); Red Cell Distribution Width 13.4 % (11.5-14.5); White Blood Count 3.7 K/mm3 (4.5-10.0)
[2021-05-28 04:28] LABS: Lactic Acid Reflex 2.5 mmol/L (0.7-2.1)
[2021-05-28 04:29] LABS: Alanine Aminotransferase 73 U/L (4-35); Albumin Level 2.6 g/dL (3.5-5.1); Alkaline Phosphatase 76 U/L (38-126); Anion Gap 1 mmol/L (8-16); Aspartate Amino Transferase 419 U/L (14-36); Bilirubin,Total 2.2 mg/dL (0.2-1.3); Blood Urea Nitrogen 17 mg/dL (7-17); Calcium 6.9 mg/dL (8.4-10.2); Carbon Dioxide 27 mmol/L (22-30); Chloride 101 mmol/L (98-107); Estimated CRCL calculation 86 ml/min; Estimated Glomerular Filt Rate > 60; Glucose 100 mg/dL (65-110); Magnesium 2.4 mg/dL (1.6-2.3); Potassium 3.3 mmol/L (3.4-5.0); Sodium 129 mmol/L (137-145)
[2021-05-28] MEDS: MORPHINE SULFATE (*CRX) 2 MG/ML INJ 1 MG IV PUSH (06:02)
[2021-05-28] MEDS: ENOXAPARIN 40 MG/0.4 ML SYRINGE SUB-Q (08:57)
--- NOTE | 2021-05-28 09:19 | PM.OP ---
Procedure Note - Brief Procedure Note - Brief Date of procedure: 05/28/21 Pre-op diagnosis: Multifocal Pneumonia, Hypoxia Surgeon: Called by hospitalist physician regarding patient's central line tip being in atrium. Situation discussed with the patient and obtained verbal consent. Using sterile precautions , Dressing was removed, central line was pulled out by 3 cm and re-sutured and dressed in place. All ports would checked by drawing blood and flushing and they were all working. Line sutured back in place.
--- NOTE | 2021-05-28 10:09 | PM.IMPN ---
Progress Note: A&P Assessment and Plan (1) Sepsis: Code(s): A41.9 - Sepsis, unspecified organism Status: Acute Assessment and Plan: Secondary to pneumonia Early goal-directed therapy ongoing Broad-spectrum antibiotics Cultures in progress Strict I's and O's Antibiotic adjusted Will get CT scan of the chest (2) IV drug user: Code(s): F19.90 - Other psychoactive substance use, unspecified, uncomplicated Status: Acute Assessment and Plan: Blood cultures in progress Echocardiogram in a (3) Lung infiltrate: Code(s): R91.8 - Other nonspecific abnormal finding of lung field Status: Acute Assessment and Plan: Patient is on Zosyn and vancomycin. (4) Altered mental status: Code(s): R41.82 - Altered mental status, unspecified Status: Acute Assessment and Plan: Acute metabolic encephalopathy Likely toxic metabolic insulin follow-up at the secondary to sepsis. Supportive care (5) Acute respiratory failure with hypoxia: Code(s): J96.01 - Acute respiratory failure with hypoxia Status: Acute Assessment and Plan: Currently on BiPAP secondary to pneumonia concern for ARDS (6) Tobacco dependence: Code(s): F17.200 - Nicotine dependence, unspecified, uncomplicated Status: Acute Assessment and Plan: Nicotine patch as needed (7) Hepatitis C: Code(s): B19.20 - Unspecified viral hepatitis C without hepatic coma Status: Acute Assessment and Plan: Patient with high viral load according to previous PCR (8) Abnormal LFTs (liver function tests): Code(s): R79.89 - Other specified abnormal findings of blood chemistry Status: Acute Assessment and Plan: Abnormal AST Total bili 2.2 Right upper quadrant ultrasound Likely secondary to sepsis Hepatitis C contributing as well Subjective Date/time seen: 05/28/21 10:09 Interval history: 30 years old female with past medical history of drug abuse presented to the hospital with altered mental status wheezing shortness of breath and cough patient was found to have acute hypoxemic respiratory failure pneumonia hypotension central line was placed in the ER started on broad-spectrum IV antibiotics patient is requiring BiPAP Central wine was placed in a ER central line was retracted by ICU to appropriate location on 05/28/2021 Patient feels weak short of breath on BiPAP Patient denies fever headache chest pain I am seeing the patient for shortness of breath Exam Narrative: Alert Chest bilateral wheezing crackles Abdomen nontender nondistended CVS S1 + S2 Lower negative extremity edema Objective Data Vital Signs Vital Signs: Vital Signs - 24 hr 05/27/21 19:05 05/27/21 19:37 05/27/21 20:49 Temperature 99.7 F H Pulse Rate 109 H 97 100 Respiratory Rate 26 H 25 H Blood Pressure 118/59 L Pulse Oximetry 88 L 97 05/27/21 20:50 05/27/21 21:00 05/27/21 21:15 Temperature Pulse Rate 104 H 105 H Respiratory Rate 20 37 H Blood Pressure Pulse Oximetry 97 05/27/21 22:47 05/27/21 23:00 05/27/21 23:15 Temperature Pulse Rate 113 H 110 H 104 H Respiratory Rate 33 H 41 H 27 H Blood Pressure Pulse Oximetry 05/27/21 23:25 05/27/21 23:26 05/27/21 23:30 Temperature 100.8 F H Pulse Rate 103 H 101 H 102 H Respiratory Rate 29 H 35 H 39 H Blood Pressure 119/57 L Pulse Oximetry 88 L 05/27/21 23:32 05/28/21 00:39 05/28/21 01:00 Temperature 100.6 F H 99.7 F H Pulse Rate 101 H 101 H Respiratory Rate 33 H 24 H Blood Pressure 117/60 120/63 Pulse Oximetry 90 92 05/28/21 01:04 05/28/21 01:10 05/28/21 01:15 Temperature 99.1 F Pulse Rate 104 H 101 H Respiratory Rate 30 H Blood Pressure 118/58 L Pulse Oximetry 85 L 84 L 05/28/21 01:25 05/28/21 01:30 05/28/21 01:35 Temperature Pulse Rate 101 H Respiratory Rate 32 H 32 H Blood Pressure Pulse Oximetry 87 L 90
[2021-05-28] MEDS: metroNIDAZOLE 500 MG/ISO 100ML 500 MG/100 ML BAG 100 MG IVPB ×2 (10:42→18:08)
[2021-05-28] MEDS: POTASSIUM CHLORIDE INJ 40 MEQ in SODIUM CHLORIDE 0.9% IV 500 ML 130 MEQ IVPB (10:42)
[2021-05-28 11:29] LABS: SPREG INTERNAL CONTROL Positive; Serum Qual hCG Negative
[2021-05-28] MEDS: FUROSEMIDE INJ 40 MG/4 ML VIAL IV PUSH (12:00)
[2021-05-28] MEDS: methylPREDNISolone SOD SUCC 40 MG VIAL IV PUSH (12:16)
--- NOTE | 2021-05-28 13:41 | WPDCNINT ---
Assessment and Plan Assessment and plan (1) Acute respiratory failure with hypoxia: Code(s): J96.01 - Acute respiratory failure with hypoxia Status: Acute Assessment and Plan: Patient presented with shortness of breath and her chest x-ray showed bilateral diffuse infiltrate. Initially she was on 5 L nasal cannula but now on BiPAP. CTA done this morning shows Diffuse lung disease, left greater than right which may reflect atypical pneumonia and/or hypersensitivity pneumonitis which may be drug induced and/or pulmonary edema. Etiology of her lung disease could be infectious, hypersensitivity pneumonitis, EVALI, drug-induced ARDS among other possible etiology At this point continue BiPAP 16 over rate 50% as she is able to maintain her oxygenation Transfer to ICU for closer monitoring I will start patient on morphine for pain and Precedex for anxiety which may help a tachypnea Patient may need intubation if her respiratory failure did it worsens or she becomes BiPAP dependent. I have discussed this with patient and she verbalized understanding that she may need intubation if her symptoms other worsen and if we are unable to maintain her oxygenation with noninvasive therapies She is on broad-spectrum antibiotics vancomycin cefepime and Flagyl She is also on steroids Solu-Medrol q.8 hours. I will change it to q.a.m. dosing consistent with dosing recommendation for EVALI Her COVID PCR and rapid flu testing was negative in ED I will also order Legionella and pneumococcal urine antigen Blood cultures have been sent and are pending Check procalcitonin level ABG reviewed Pulmonary has been consulted she may need bronchoscopy Her BNP was elevated at 563 but distance not appear to be a pulmonary edema. She did receive a dose of Lasix. echo has been done and is pending I will give her cautious amount of IV fluids to prevent dehydration and hypovolemia (2) Pneumonia: Code(s): J18.9 - Pneumonia, unspecified organism Status: Acute Assessment and Plan: See above (3) Abnormal LFTs (liver function tests): Code(s): R79.89 - Other specified abnormal findings of blood chemistry Status: Acute Assessment and Plan: She has hep C CT abdomen pelvis did not show any significant abnormality with the liver Continue monitor levels (4) Hepatitis C: Code(s): B19.20 - Unspecified viral hepatitis C without hepatic coma Status: Acute Assessment and Plan: No treatment at this time (5) Sepsis: Code(s): A41.9 - Sepsis, unspecified organism Status: Acute Assessment and Plan: See above Blood cultures are done and echo has been done with report pending to rule out any endocarditis (6) Substance abuse: Code(s): F19.10 - Other psychoactive substance abuse, uncomplicated Status: Acute Assessment and Plan: Patient does have history of substance abuse. He admits to using IV cocaine IV heroin methamphetamine smoking and vaping. Denies any alcohol use Monitor for opioid withdrawal P.r.n. morphine is ordered for pain and may help with anxiety and tachypnea Additional Plan DVT prophylaxis -Lovenox Stress ulcer prophylaxis - Nutrition -NPO Code Status - Full Code Patient states that she does not have any family member who could make decisions for her if she is unable. She is unmarried, has no children and is not aware of her. She told me that she would like her friend Geoffrey to make decisions on her behalf if she is unable to. Total Critical Care Time - 40 minutes Due to a high probability of clinically significant, life threatening deterioration, the patient required my highest level of preparedness to intervene emergently and I personally spent this critical care time directly and personally managing the patient. This critical care time included obtaining a history; examining the patient; pulse oximetry; ordering and review of studies; arranging urgent treatment
[2021-05-28] MEDS: dexmedeTOMIDine 400 MCG/100 ML 400 MCG/100 ML BAG IV CONT (14:05)
[2021-05-28] MEDS: MORPHINE SULFATE (*CRX) 2 MG/ML INJ IV PUSH ×2 (14:17→19:44)
--- NOTE | 2021-05-28 14:17 | PC.NURSE ---
This patient, Shireen Flowers, was transferred to [ ICU-11] on 05/28/21 at 1400. Personal belongings sent with patient. Report given to [SHARIF Duran @ 1400 ]. Appropriate documentation sent with patient.
[2021-05-28] MEDS: methylPREDNISolone SOD SUCC 40 MG VIAL 30 MG IV PUSH (14:19)
[2021-05-28] MEDS: CALCIUM GLUC 2,000 MG/NS 100ML 2,000 MG/100 ML BAG 100 MG IVPB (14:20)
[2021-05-28] MEDS: DEXTROSE 5%/0.9% SOD CHL 1,000 ML 75 ML IV CONT (14:25)
[2021-05-28 15:15] LABS: Influenza Control Positive
[2021-05-28 15:35] LABS: Procalcitonin 28.8 ng/mL
[2021-05-28 18:32] LABS: Lactic Acid Reflex 2.9 mmol/L (0.7-2.1)
[2021-05-28 18:37] LABS: Anion Gap 0 mmol/L (8-16); Blood Urea Nitrogen 17 mg/dL (7-17); Calcium 7.8 mg/dL (8.4-10.2); Carbon Dioxide 32 mmol/L (22-30); Chloride 100 mmol/L (98-107); Estimated CRCL calculation 86 ml/min; Estimated Glomerular Filt Rate > 60; Glucose 133 mg/dL (65-110); Potassium 3.7 mmol/L (3.4-5.0); Sodium 132 mmol/L (137-145)
[2021-05-28] MEDS: dexmedeTOMIDine 400 MCG/100 ML 400 MCG/100 ML BAG 14.24 MCG IV CONT (19:46)
[2021-05-28 21:21] LABS: Reflex Lactic Acid Yes or No Add Lactic
[2021-05-28] MEDS: SODIUM CHLORIDE 0.9% IV 1,000 ML 500 ML IV CONT (22:59)
[2021-05-28] MEDS: LORazepam INJ (*CRX) 2 MG/ML VIAL 0.5 MG IV PUSH (23:51)
[2021-05-29] VITALS (27 sets, daily range): BP systolic 109–143; BP diastolic 62–83; PULSE 60–95; RESP 25–66; TEMP 36.4–37.6; O2SAT 91–100
[2021-05-29] MEDS: dexmedeTOMIDine 400 MCG/100 ML 400 MCG/100 ML BAG 14.24 MCG IV CONT ×5 (01:03→22:20)
[2021-05-29] MEDS: MORPHINE SULFATE (*CRX) 2 MG/ML INJ IV PUSH ×3 (01:04→07:39)
[2021-05-29] MEDS: IPRATROPIUM BR 0.02% INH SOLN 0.5 MG/2.5 ML VIAL INHALATION ×4 (01:36→20:23)
[2021-05-29] MEDS: ALBUTEROL SULFATE NEB 2.5 MG/0.5 ML INH INHALATION ×4 (01:36→20:22)
[2021-05-29] MEDS: metroNIDAZOLE 500 MG/ISO 100ML 500 MG/100 ML BAG 100 MG IVPB (03:33)
[2021-05-29] MEDS: DEXTROSE 5%/0.9% SOD CHL 1,000 ML 75 ML IV CONT (05:09)
--- NOTE | 2021-05-29 05:15 | PC.NURSE ---
0500- Went to give patient an IVP med and the central line in her right IJ was completely out. There were no sutures in place. The only thing holding the central line in place was tegaderm.
[2021-05-29 05:41] LABS: Base Excess ABG 1.2 mEq/l (+/-2.0); Fractional Inspired Oxygen 70 %; HCO3 ABG 24.2 mEq/l (22.0-26.0); Methemoglobin ABG 0.2 %THb (0-1.5); Oxygen Content ABG 18.8 %vol (16.0-22.0); Oxygen Saturation ABG 93.8 % (95.0-100.0); Oxyhemoglobin 91.7 % THb (90.0-100.0); PCO2 ABG 33.9 mmHg (35.0-45.0); PO2 ABG 63.7 mmHg (80.0-100.0); PO2 FiO2 Ratio Arterial Blood 0.91 %; Reduced Hemoglobin 7.1 %THb (0-5.0); Total Hemoglobin 14.6 g/dL (12.0-18.0); pH ABG 7.472 (7.350-7.450)
[2021-05-29 05:42] LABS: Device HIGH FLOW THERAPY; Modified Allen's Test Pass; Site Drawn LEFT RADIAL
[2021-05-29] MEDS: LORazepam INJ (*CRX) 2 MG/ML VIAL 0.5 MG IV PUSH ×2 (07:56→22:26)
[2021-05-29] MEDS: ENOXAPARIN 40 MG/0.4 ML SYRINGE SUB-Q (08:01)
[2021-05-29] MEDS: methylPREDNISolone SOD SUCC 125 MG VIAL 70 MG IV PUSH (08:01)
--- NOTE | 2021-05-29 09:48 | WPDINTPN ---
Progress Note: A&P Assessment and Plan (1) Acute respiratory failure with hypoxia: Code(s): J96.01 - Acute respiratory failure with hypoxia Status: Acute Assessment and Plan: Patient presented with shortness of breath and her chest x-ray showed bilateral diffuse infiltrate. Initially she was on 5 L nasal cannula but now on BiPAP. CTA done this morning shows Diffuse lung disease, left greater than right which may reflect atypical pneumonia and/or hypersensitivity pneumonitis which may be drug induced and/or pulmonary edema. Etiology of her lung disease could be infectious, hypersensitivity pneumonitis, EVALI, drug-induced ARDS among other possible etiology Patient was placed on BiPAP yesterday and started on Precedex and morphine for her anxiety and suspected opioid withdrawal. She was transition to Airvo overnight and maintained herself on Airvo 60-70% FiO2. I will continue Airvo as tolerated with p.r.n. BiPAP for now At this point continue BiPAP 16 over rate 50% as she is able to maintain her oxygenation Continue ICU closer monitoring Patient patient continues to be at risk of requiring intubation if her respiratory failure did it worsens or she becomes BiPAP dependent. I have discussed this with patient and she verbalized understanding that she may need intubation if her symptoms other worsen and if we are unable to maintain her oxygenation with noninvasive therapies She is on broad-spectrum antibiotics vancomycin cefepime She is also on steroids Solu-Medrol dosing consistent with dosing recommendation for EVALI Her COVID PCR and rapid flu testing was negative Pending Legionella and pneumococcal urine antigen Blood cultures have been sent prelim critical report call from that they were showing Gram-positive cocci Procalcitonin level was elevated at 28 ABG reviewed Pulmonary has been consulted but consult is pending as there is no pulmonary coverage this weekend. She may need bronchoscopy Her BNP was elevated at 563 but distance not appear to be a pulmonary edema. She did receive a dose of Lasix. echo has been done Reviewed I will give her cautious amount of IV fluids to prevent dehydration and hypovolemia (2) Pneumonia: Code(s): J18.9 - Pneumonia, unspecified organism Status: Acute Assessment and Plan: See above (3) Sepsis: Code(s): A41.9 - Sepsis, unspecified organism Status: Acute Assessment and Plan: secondary to endocarditis patient is being given cautious amount IV fluids due to her tenuous respiratory status continue vancomycin and cefepime to cover for endocarditis and pneumonia. I will discontinue Flagyl (4) Endocarditis: Code(s): I38 - Endocarditis, valve unspecified Status: Acute Assessment and Plan: Her blood cultures are showing Gram-positive cocci on prelim report Echo shows 1. Complete two-dimensional, color flow and Doppler transthoracic echocardiogram is performed. 2. Left ventricular chamber dimension is normal. 3. Left ventricular systolic function is normal, estimated at 60-65%. 4. The left ventricular diastolic function is grade I diastolic dysfunction. 5. E/e' 6 is not elevated. 6. There is trace mitral valve regurgitation. 7. Small mobile echogenic mass measuring 0.35 cm x 0.49 cm attached to posterior mitral valve leaflet suggests calcified chordate tendinae or vegetation. Consider CAMERON or cardiac MRI if clincally indicated. 8. Small mobile circumscribed echogenic mass measuring 0.62 cm x 0.27 cm attached to septal leaflet of tricuspid valve suggests calcified chordae tendinae or vegetation. Consider CAMERON or cardiac MRI if clinically indicated. 9. There is trace tricuspid valve regurgitation. 10. No pulmonary hypertension, estimated pulmonary arterial systolic pressure is 30 mmHg. (5) Substance abuse: Code(s): F19.10 - Other psychoactive substance abuse, uncomplicated Status: Acute Assessment and Plan:
--- NOTE | 2021-05-29 10:19 | PM.IMPN ---
Progress Note: A&P Assessment and Plan (1) Sepsis: Code(s): A41.9 - Sepsis, unspecified organism Status: Acute Assessment and Plan: Secondary to pneumonia Early goal-directed therapy ongoing Broad-spectrum antibiotics Cultures in progress Strict I's and O's Antibiotic adjusted Reviewed CT scan of the chest shows positive consolidation Concern for viral/bacterial pneumonia/EVALI VERBAL INDUCED LUNG INJURY WEANED OFF BIPAP CURRENTLY ON HIGH-FLOW NASAL CANNULA (2) IV drug user: Code(s): F19.90 - Other psychoactive substance use, unspecified, uncomplicated Status: Acute Assessment and Plan: ECHO SHOWS VEGETATION blood culture positive Continue IV antibiotics 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 (3) Lung infiltrate: Code(s): R91.8 - Other nonspecific abnormal finding of lung field Status: Acute Assessment and Plan: As above Patient is o broad-spectrum IV antibiotics (4) Altered mental status: Code(s): R41.82 - Altered mental status, unspecified Status: Acute Assessment and Plan: Acute metabolic encephalopathy Likely toxic metabolic secondary to sepsis drug abuse acute hypoxemic respiratory Parres Supportive care (5) Acute respiratory failure with hypoxia: Code(s): J96.01 - Acute respiratory failure with hypoxia Status: Acute Assessment and Plan: Status post BiPAP secondary to pneumonia concern for ARDS (6) Tobacco dependence: Code(s): F17.200 - Nicotine dependence, unspecified, uncomplicated Status: Acute Assessment and Plan: Nicotine patch as needed (7) Hepatitis C: Code(s): B19.20 - Unspecified viral hepatitis C without hepatic coma Status: Acute Assessment and Plan: Patient with high viral load according to previous PCR (8) Abnormal LFTs (liver function tests): Code(s): R79.89 - Other specified abnormal findings of blood chemistry Status: Acute Assessment and Plan: Abnormal AST Total bili 2.2 Right upper quadrant ultrasound Likely secondary to sepsis Hepatitis C contributing as well Subjective Date/time seen: 05/29/21 10:19 Interval history: 30 years old female with past medical history of drug abuse patient she use fentanyl IV 3 times a day presented to the hospital with altered mental status wheezing shortness of breath and cough patient was found to have acute hypoxemic respiratory failure pneumonia hypotension central line was placed in the ER started on broad-spectrum IV antibiotics patient is requiring BiPAP Central wine was placed in a ER central line was retracted by ICU to appropriate location on 05/28/2021 Patient required close monitoring in ICU was transferred to ICU on 05/28/2021 patient weaned off BiPAP to high-flow nasal can not Echo shows positive for vegetations blood cultures positive Patient denies fever headache chest pain I am seeing the patient for shortness of breath Exam Narrative: Alert Chest bilateral wheezing crackles Abdomen nontender nondistended CVS S1 + S2 Lower negative extremity edema Objective Data Vital Signs Vital Signs: Vital Signs - 24 hr 05/28/21 12:00 05/28/21 13:15 05/28/21 13:16 Temperature 97.2 F L Pulse Rate 103 H 99 98 Respiratory Rate 52 H 55 H 53 H Blood Pressure 123/54 L Pulse Oximetry 96 92 05/28/21 14:00 05/28/21 14:05 05/28/21 14:12 Temperature 97.5 F L Pulse Rate 109 H 109 H 114 H Respiratory Rate 50 H 50 H Blood Pressure 116/62 Pulse Oximetry 97 05/28/21 14:30 05/28/21 16:00 05/28/21 16:46 Temperature 97.4 F L Pulse Rate 87 86 Respiratory Rate 48 H 44 H Blood Pressure 108/72 Pulse Oximetry 96 95 97 05/28/21 18:00 05/28/21 18:15 05/28/21 19:50 Temperature 98.9 F Pulse Rate 82 85 83 Respiratory Rate 49 H 44 H 24 H Blood Pressure 115/69 Pulse Oximetry 96 05/28/21 19:52 05/28/21 20:00 05/28/21 22:00 Temperature 98.3 F Pulse R
[2021-05-29] MEDS: oxyCODONE HCL (*CRX) 5 MG TAB IR 10 MG PO ×2 (11:24→17:14)
[2021-05-29 11:42] LABS: Hematocrit 29.4 % (37.0-47.0); Hemoglobin 9.7 g/dL (12.0-15.0); Mean Corpuscular Hemoglobin 28.7 pg (26-34); Mean Platelet Volume 11.5 fl (7.4-10.4); Platelet Count Result 305 k/mm3 (150-375); Red Blood Count 3.38 M/mm3 (4.2-5.4); Red Cell Distribution Width 14.3 % (11.5-14.5); White Blood Count 12.7 K/mm3 (4.5-10.0)
[2021-05-29 11:53] LABS: Magnesium 2.4 mg/dL (1.6-2.3)
[2021-05-29 11:55] LABS: Lactic Acid Reflex 1.8 mmol/L (0.7-2.1)
[2021-05-29 11:57] LABS: Alanine Aminotransferase 55 U/L (4-35); Albumin Level 2.4 g/dL (3.5-5.1); Alkaline Phosphatase 67 U/L (38-126); Anion Gap 0 mmol/L (8-16); Aspartate Amino Transferase 278 U/L (14-36); Bilirubin,Total 2.2 mg/dL (0.2-1.3); Blood Urea Nitrogen 29 mg/dL (7-17); Calcium 7.7 mg/dL (8.4-10.2); Carbon Dioxide 28 mmol/L (22-30); Chloride 102 mmol/L (98-107); Estimated CRCL calculation 98 ml/min; Estimated Glomerular Filt Rate > 60; Glucose 161 mg/dL (65-110); Potassium 3.9 mmol/L (3.4-5.0); Sodium 130 mmol/L (137-145)
[2021-05-29 12:03] LABS: Vancomycin Trough 6.1 ug/mL (10.0-20.0)
[2021-05-29] MEDS: CENTRAL LINE FLUSH 10 ML IV PUSH ×2 (14:23→22:21)
[2021-05-30] VITALS (35 sets, daily range): BP systolic 110–129; BP diastolic 71–95; PULSE 63–90; RESP 26–70; TEMP 36.6–37.2; O2SAT 90–98
[2021-05-30] MEDS: oxyCODONE HCL (*CRX) 5 MG TAB IR 10 MG PO ×4 (00:42→18:13)
[2021-05-30] MEDS: ALBUTEROL SULFATE NEB 2.5 MG/0.5 ML INH INHALATION ×4 (02:50→20:07)
[2021-05-30] MEDS: IPRATROPIUM BR 0.02% INH SOLN 0.5 MG/2.5 ML VIAL INHALATION ×4 (02:50→20:08)
[2021-05-30] MEDS: MORPHINE SULFATE (*CRX) 2 MG/ML INJ IV PUSH ×3 (03:32→15:23)
--- NOTE | 2021-05-30 05:16 | PC.NURSE ---
0515Howie Torres [phone] (dad) [phone] from [place] called asking for information on patient. This nurse asked the patient if she could get information and the patient said no. Patient currently alert and oriented
[2021-05-30 05:41] LABS: Base Excess ABG 1.1 mEq/l (+/-2.0); Carboxyhemoglobin 0.3 % THb (0-2.0); Device NON-INVASIVE VENT; Fractional Inspired Oxygen 75 %; HCO3 ABG 24.6 mEq/l (22.0-26.0); Methemoglobin ABG 0.4 %THb (0-1.5); Modified Allen's Test Pass; Oxygen Content ABG 12.3 %vol (16.0-22.0); Oxygen Saturation ABG 95.7 % (95.0-100.0); Oxyhemoglobin 93.7 % THb (90.0-100.0); PCO2 ABG 34.2 mmHg (35.0-45.0); PO2 ABG 73.4 mmHg (80.0-100.0); PO2 FiO2 Ratio Arterial Blood 0.98 %; Reduced Hemoglobin 5.6 %THb (0-5.0); Site Drawn LEFT RADIAL; Total Hemoglobin 9.3 g/dL (12.0-18.0); pH ABG 7.474 (7.350-7.450)
[2021-05-30 05:42] LABS: Non-Invasive Expiratory Pressure 8 CMH2O; Non-Invasive Inspiratory Pressure 16 CMH2O; Non-Invasive Vent Rate 18 /MIN
[2021-05-30] MEDS: dexmedeTOMIDine 400 MCG/100 ML 400 MCG/100 ML BAG 14.24 MCG IV CONT ×2 (06:14→12:23)
[2021-05-30] MEDS: CENTRAL LINE FLUSH 10 ML IV PUSH ×3 (06:15→23:04)
[2021-05-30 06:31] LABS: Hematocrit 24.8 % (37.0-47.0); Hemoglobin 8.2 g/dL (12.0-15.0); Mean Corpuscular HGB Conc 33.1 g/dl (32-36); Mean Corpuscular Hemoglobin 28.9 pg (26-34); Mean Corpuscular Volume 87.3 fl (80-100); Mean Platelet Volume 11.4 fl (7.4-10.4); Platelet Count Result 327 k/mm3 (150-375); Red Blood Count 2.84 M/mm3 (4.2-5.4); Red Cell Distribution Width 15.2 % (11.5-14.5); White Blood Count 19.9 K/mm3 (4.5-10.0)
[2021-05-30 06:42] LABS: Alanine Aminotransferase 51 U/L (4-35); Albumin Level 2.3 g/dL (3.5-5.1); Alkaline Phosphatase 75 U/L (38-126); Anion Gap 0 mmol/L (8-16); Aspartate Amino Transferase 189 U/L (14-36); Bilirubin,Total 2.5 mg/dL (0.2-1.3); Blood Urea Nitrogen 36 mg/dL (7-17); Calcium 7.6 mg/dL (8.4-10.2); Carbon Dioxide 26 mmol/L (22-30); Chloride 101 mmol/L (98-107); Estimated CRCL calculation 119 ml/min; Estimated Glomerular Filt Rate > 60; Glucose 198 mg/dL (65-110); Magnesium 2.3 mg/dL (1.6-2.3); Potassium 4.2 mmol/L (3.4-5.0); Sodium 127 mmol/L (137-145)
[2021-05-30] MEDS: methylPREDNISolone SOD SUCC 125 MG VIAL 70 MG IV PUSH (08:13)
[2021-05-30] MEDS: ENOXAPARIN 40 MG/0.4 ML SYRINGE SUB-Q (08:13)
--- NOTE | 2021-05-30 08:14 | WPDINTPN ---
Progress Note: A&P Assessment and Plan (1) Acute respiratory failure with hypoxia: Code(s): J96.01 - Acute respiratory failure with hypoxia Status: Acute Assessment and Plan: Patient presented with shortness of breath and her chest x-ray showed bilateral diffuse infiltrate. Initially she was on 5 L nasal cannula but now on BiPAP. CTA done this morning shows Diffuse lung disease, left greater than right which may reflect atypical pneumonia and/or hypersensitivity pneumonitis which may be drug induced and/or pulmonary edema. initial differential diagnosis for possible etiology of her lung disease was infectious, hypersensitivity pneumonitis, EVALI, drug-induced ARDS among other possible etiology Since then, her blood cultures positive for strep pneumonia which is likely the etiology of both pneumonia and endocarditis Patient has been on BiPAP through the night. She does take of mask frequently to take sips of water herself. She is on 75% FiO2. She is tachypneic but not using accessory muscles and able to speak full sentences when asked. I discussed option of intubation today with patient. I explained her that her respiratory failure has not significantly improved and the that she is requiring BiPAP continuously. I I explained her the intubation procedure and the benefits and risks involved with mechanical ventilation. She is not want to be intubated this time. She states that she would be willing to go on mechanical ventilation if there is no other option left. But this time she feels she is feeling little better as compared to yesterday hence does not feel that she needs to go on a ventilator. I requested patient to notified nurse immediately if she changes her mind or feels she is unable to keep up with her breathing. Continue BiPAP at this time and continue ICU closer monitoring. Patient continues to be at risk of requiring intubation if her respiratory failure and insert real possibility that patient will eventually tire out and require that option Chest x-ray reviewed She is on broad-spectrum antibiotics vancomycin cefepime. I will change cefepime to Rocephin She is also on steroids Solu-Medrol dosing consistent with dosing recommendation for EVALI. Will discuss with Pulmonary regarding whether to discontinue Solu-Medrol insert Cultures came back positive suggestive of strep pneumo. Her COVID PCR and rapid flu testing was negative Pending Legionella and pneumococcal urine antigen Procalcitonin level was elevated at 28 On 05/28 ABG reviewed Pulmonary has been consulted but consult is pending Her BNP was elevated at 563 but distance not appear to be a pulmonary edema. She did receive a dose of Lasix. Echo reviewed I am giving her her cautious amount of IV fluids to prevent dehydration and hypovolemia Check HIV (2) Pneumonia: Code(s): J18.9 - Pneumonia, unspecified organism Status: Acute Assessment and Plan: See above (3) Sepsis: Code(s): A41.9 - Sepsis, unspecified organism Status: Acute Assessment and Plan: secondary to endocarditis patient is being given cautious amount IV fluids due to her tenuous respiratory status continue vancomycin and Rocephin to cover for endocarditis and pneumococcal pneumonia. off Flagyl lactic acid level has normalized (4) Endocarditis: Code(s): I38 - Endocarditis, valve unspecified Status: Acute Assessment and Plan: Her blood cultures are showing strep pneumoniae Echo shows 1. Complete two-dimensional, color flow and Doppler transthoracic echocardiogram is performed. 2. Left ventricular chamber dimension is normal. 3. Left ventricular systolic function is normal, estimated at 60-65%. 4. The left ventricular diastolic function is grade I diastolic dysfunction. 5. E/e' 6 is not elevated. 6. There is trace mitral valve regurgitation. 7. Small mobile echogenic mass measuring 0.35 cm x 0.49 cm attached to post
[2021-05-30] MEDS: cefTRIAXone 2 GM in SODIUM CHLORIDE 0.9% IV 100 ML 200 ML IVPB (09:02)
[2021-05-30] MEDS: SODIUM CHLORIDE 0.9% IV 1,000 ML 75 ML IV CONT ×2 (09:02→23:05)
[2021-05-30 09:06] LABS: HIV 1/2 Ab P24 Ag Result Negative (Negative)
--- NOTE | 2021-05-30 10:21 | PM.IMPN ---
Progress Note: A&P Assessment and Plan (1) Sepsis: Code(s): A41.9 - Sepsis, unspecified organism Status: Acute Assessment and Plan: Secondary to pneumonia Early goal-directed therapy ongoing Broad-spectrum antibiotics Cultures in progress Strict I's and O's Antibiotic adjusted Reviewed CT scan of the chest shows positive consolidation Concern for viral/bacterial pneumonia/EVALI VERBAL INDUCED LUNG INJURY Continue IV antibiotics Blood culture positive for strep pneumonia (2) IV drug user: Code(s): F19.90 - Other psychoactive substance use, unspecified, uncomplicated Status: Acute Assessment and Plan: ECHO SHOWS VEGETATION blood culture positive Continue IV antibiotics 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01 - Acute respiratory failure with hypoxia Status: Acute Assessment and Plan: Status post BiPAP secondary to pneumonia concern for ARDS (6) Tobacco dependence: Code(s): F17.200 - Nicotine dependence, unspecified, uncomplicated Status: Acute Assessment and Plan: Nicotine patch as needed (7) Hepatitis C: Code(s): B19.20 - Unspecified viral hepatitis C without hepatic coma Status: Acute Assessment and Plan: Patient with high viral load according to previous PCR (8) Abnormal LFTs (liver function tests): Code(s): R79.89 - Other specified abnormal findings of blood chemistry Status: Acute Assessment and Plan: Abnormal AST Total bili 2.2 CT scan of the abdomen negative for acute finding continue to monitor probably related to drug abuse and hepatitis-C Likely secondary to sepsis Hepatitis C contributing as well Subjective Date/time seen: 05/30/21 10:21 Interval history: 30 years old female with past medical history of drug abuse patient she use fentanyl IV 3 times a day presented to the hospital with altered mental status wheezing shortness of breath and cough patient was found to have acute hypoxemic respiratory failure pneumonia hypotension central line was placed in the ER started on broad-spectrum IV antibiotics patient is requiring BiPAP Central wine was placed in a ER central line was retracted by ICU to appropriate location on 05/28/2021 Patient required close monitoring in ICU was transferred to ICU on 05/28/2021 patient continued to be on BiPAP Echo shows positive for vegetations blood cultures positive for Streptococcus pneumonia Patient denies fever headache chest pain I am seeing the patient for shortness of breath Exam Narrative: Alert Chest bilateral wheezing crackles Abdomen nontender nondistended CVS S1 + S2 Lower negative extremity edema Objective Data Vital Signs Vital Signs: Vital Signs - 24 hr 05/29/21 10:36 05/29/21 12:00 05/29/21 13:48 Temperature 98.9 F Pulse Rate 75 88 62 Respiratory Rate 62 H 46 H 56 H Blood Pressure 116/83 Pulse Oximetry 94 100 97 05/29/21 13:55 05/29/21 14:00 05/29/21 16:00 Temperature 98.4 F Pulse Rate 68 74 71 Respiratory Rate 55 H 38 H 54 H Blood Pressure 111/81 123/78 Pulse Oximetry 95 95 05/29/21 16:35 05/29/21 18:00 05/29/21 20:00 Temperature 97.5 F L Pulse Rate 60 66 64 Respiratory Rate 66 H 48 H 39 H Blood Pressure 113/73 121/81 Pulse Oximetry 98 94 97 05/29/21 20:23 0
--- NOTE | 2021-05-30 10:45 | PC.NURSE ---
Patient requested purse that was in locked cabinet to be given to visitor, Geoffrey. Upon re-entering patient's room, visitor Geoffrey was going through room supply closet. RN stated he is to not be in there. Geoffrey stated he was looking for something of the patient's that she said was in there. RN stated all belongings were given to patient and locked all cabinets. Reiterated importance of not taking any outside medications while in the hospital. Geoffrey verbalized understanding.
[2021-05-30 11:40] LABS: SARS-CoV-2 RNA PCR Negative
--- NOTE | 2021-05-30 12:20 | PM.CNPUL ---
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 Agree with vancomycin, ceftriaxone and would add Levaquin until remainder of cultures return. Given the severity of this infection I would favor discontinuation of systemic steroids at this point so as not to immunosuppressed her. She has been vaping juices which she purchased from a vaping store. Her boyfriend tells me that this contains a nicotine substance but he is not sure. The patient denies vaping THC oil at this time. She may have EVALI and steroids may be beneficial for this disease process. However as noted above she has a life-threatening illness with streptococcal bacteremia and I favor discontinuing the steroids. The patient is COVID negative by RT PCR on 05/27/2021 and 05/30/2021. Influenza swab is negative. HIV is negative. Urine Legionella and urine pneumococcal antigens are pending. Bronchoscopy was brought up to the patient and this would certainly require mechanical ventilation and she told the mental health unit lead psychologist that at this time she does not want testing that may result in mechanical ventilation. She has no history of connective tissue disorder and I do not think that this is alveolar hemorrhage. Given pneumococcal bacteremia I will not send serologies or studies for fungal infection at this time. Discussed with Dr. Daigle. Will follow with you History of Present Illness History of Present Illness Consult date: 05/30/21 Requesting physician: Dean Daigle MD Reason for consult: hypoxemia and pneumonia Chief complaint: Multifocal Pneumonia, Hypoxia Narrative: 05/30/2021: This is a new pulmonary consult for hypoxemic respiratory failure 30-year-old woman with a history of hepatitis-C,intravenous drug use, vaping, and tobacco use presented to the emergency room on 05/28/2021 with 5 days weakness, shortness of breath, cough, fever, chills, and shivering. She had a white blood cell count that was 5.4, chest x-ray with diffuse interstitial and alveolar infiltrates right greater than left with possible cavity at the right lower lobe, COVID was negative, influenza was negative, BNP was 579, ABG listed at on 90% FiO2 was a pH of 7.47/32/54.procalcitonin later returned at 28.8. she had a CT angiogram of the chest that showed no PE, diffuse bilateral can fluid consolidative infiltrates on the right with patchy ground-glass infiltrates with some areas of consolidation on the left. There was a cavity in the right lower lobe. Patient was admitted to the hospital and treated with vanc and Zosyn. Later in the day on 05/28 Flagyl and cefepime were added. Patient had an echocardiogram on 05/28/2021 demonstrating normal LV function, small mobile echogenic mass measuring 0.35 cm time 0.49 cm attached to the post. Or mitral valve leaflet and small mobile circumscribed echogenic mass measuring 0.62 time 0.27 cm attached to the tricuspid valve O suggestive of a calcified chordae tendon a or vegetation. There was trace tricuspid regurg with an estimated PASP of 30 and there is trace mitral valve regurg. Patient had worsening hypoxemia requiring admission to the ICU requiring high-flow nasal cannula and ultimately BiPAP. ABG on 05/29/2021 on high-flow nasal cannula was a pH of 7.47/34/64 There were concerns of E cigar
--- NOTE | 2021-05-30 13:30 | PC.NURSE ---
Patient moved to room ICU 7 per request of fire alarm mechanic and ICU director for closer monitoring. Visitor Geoffrey updated.
--- NOTE | 2021-05-30 14:00 | PC.NURSE ---
patient called RN to bedside for extra blanket. Upon entering there was a half empty purple capsule in patients bed. When RN asked patient about it, patient stated it was stuck to me from home and I have no idea what it is. Xena Ricci, ICU director, was notified.
--- NOTE | 2021-05-30 15:54 | PM.CNCAR ---
Assessment and Plan Assessment and plan (1) Endocarditis: Code(s): I38 - Endocarditis, valve unspecified Status: Acute Assessment and Plan: TTE showing small mobile echogenic mass measuring 0.35 cm x 0.49 cm attached to posterior mitral valve leaflet suggests calcified chordate tendinae or vegetation, small mobile circumscribed echogenic mass measuring 0.62 cm x 0.27 cm attached to septal leaflet of tricuspid valve suggests calcified chordae tendinae or vegetation. Concern for endocarditis given clinical scenario and IV drug use. CAMERON would be recommended, however, due to patient's current instability from a respiratory standpoint, sedation for this procedure would likely require intubation which the patient has indicated she is not interested in at this point. Will keep NPO in the event that her clinical status has improved by tomorrow and CAMERON can be performed safely Continue IV abx (2) Acute respiratory failure with hypoxia: Code(s): J96.01 - Acute respiratory failure with hypoxia Status: Acute Assessment and Plan: CT showing diffuse lung disease, left greater than right which may reflect atypical pneumonia and or hypersensitivity pneumonitis. Being treated with IV antibiotics. She is requiring BiPAP support at this point. Management per critical care service. (3) Pneumonia: Code(s): J18.9 - Pneumonia, unspecified organism Status: Acute Assessment and Plan: As above (4) Sepsis: Code(s): A41.9 - Sepsis, unspecified organism Status: Acute Assessment and Plan: Bcx positive for S. pneumo. Secondary to pneumonia, possible endocarditis. On IV abx per primary service. History of Present Illness History of Present Illness Consult date/time: 05/30/21 15:54 Requesting physician: Dean Daigle MD Consult reason: Other (endocarditis) Reason For Visit: Multifocal Pneumonia, Hypoxia Narrative: Ms. Flowers is a 30 year old female with a history significant for hepatitis-C, vaping use, and IV drug use. This is a patient who presented to the emergency department with a chief complaint of shortness of breath. She had been experiencing progressive shortness of breath for 5-6 days before arriving to the hospital. At that time she denied having any fever, chills, sweats, or any other complaints. Her workup has been significant for chest x-ray with diffuse lung disease, CT scan with diffuse bilateral interstitial and alveolar infiltrates with areas of consolidation and a cavity in the right lower lobe. Echocardiogram showing possible vegetations on the mitral leaflet and septal leaflet of the tricuspid valve. Her blood cultures are positive for strep pneumo. She denies any cardiac history and denies any prior hospitalizations. Currently, she is in the ICU on BiPAP and receiving IV antibiotics. Review of Systems Constitutional: Constitutional: Denies body ache(s), Denies chills, Denies difficulty sleeping and Denies night sweats Eyes: Eyes: Denies change in vision ENT: Reports Normal hearing present Cardiovascular: Cardiovascular: Denies chest pain, Denies pedal edema, Denies leg edema and Denies palpitations Respiratory: Respiratory: Denies chest congestion, Denies cough, Denies hemoptysis, Reports dyspnea, Reports dyspnea on exertion and Denies wheezing Gastrointestinal: Gastrointestinal: Denies melena and Denies hematochezia Genitourinary: Genitourinary: Denies hematuria, Denies urinary hesitancy and Denies urinary urgency Musculoskeletal: Musculoskeletal: Reports back pain, Denies arthralgias and Denies joint swelling Integumentary/Breasts: Skin/Breast: Denies pruritus, Denies rash and Denies unusual bruising Neurologic: Denies Abnormal speech present, Denies headache(s) and Denies numbness Psychiatric: Psychiatric: Reports anxiety and Denies depression Endocrine: Endocrine: Denies excessive sweating, Denies fatigue and Denies flushing Hematologic/Lymphat
[2021-05-30] MEDS: LORazepam INJ (*CRX) 2 MG/ML VIAL 0.5 MG IV PUSH (16:42)
[2021-05-30] MEDS: dexmedeTOMIDine 400 MCG/100 ML 400 MCG/100 ML BAG 17.8 MCG IV CONT (18:52)
--- NOTE | 2021-05-30 20:30 | PC.NURSE ---
Visitor Left after visiting hours were over. Patient instructed Visitor to leave with her purse. Visitor took purse as per patient request. Patients linens were changed and syringe found with liquid substance. Patient would not let go of it, some was squirted out. The rest was sent down via to pharmacy. Gustavo OLGUIN, charge nurse notified. All extra equipment including trash cans was taken out of the room. Patient states she didn't take anything. Continue to monitor at this time.
[2021-05-30] MEDS: dexmedeTOMIDine 400 MCG/100 ML 400 MCG/100 ML BAG 24.92 MCG IV CONT (23:02)
[2021-05-30] MEDS: MORPHINE SULFATE (*CRX) 4 MG/ML INJ IV PUSH (23:03)
--- NOTE | 2021-05-30 23:14 | PC.NURSE ---
Spoke with patient regarding work of breathing. Patient still refusing to be intubated at this time.
[2021-05-31] VITALS (54 sets, daily range): BP systolic 95–161; BP diastolic 57–97; PULSE 69–148; RESP 25–60; TEMP 36.3–37.6; O2SAT 85–100; BMI 31.8
--- NOTE | 2021-05-31 00:04 | PC.NURSE ---
Dr. Sosa talking with patient. Patient agreeable to intubation. Dr. Daigle notified. Vent orders received. Patient does not wish to talk to family!
[2021-05-31] MEDS: FENTANYL 2,500MCG/NS250ML(*CRX 2,500 MCG/250 ML BAG 20 MCG IV CONT ×2 (00:30→11:52)
[2021-05-31] MEDS: MIDAZOLAM 100MG/NS 100ML(*CRX) 100 MG/100 ML BAG 10 MG IV CONT ×3 (00:30→18:25)
[2021-05-31] MEDS: PROPOFOL IV EMULSION 100 ML 24 MG IV CONT ×6 (00:45→20:00)
--- NOTE | 2021-05-31 00:48 | WPDPROCEDUR ---
Procedures Intubation Intubation Date: 05/31/21 Intubation Time: 00:10 A pre-procedural Time-Out was completed immediately before starting the procedure and confirmed: Patient Identification, Site, Procedure, Patient Position and the Availability of Requisite Equipment: Yes Sedative: other (Propofol) Mg given: 160 Paralytic: rocuronium Mg given: 50 Laryngoscope: fiber optic video scope Assist device used: Bougie ET tube size: cuffed Tube secured depth (cm): 24 Tube secured location: teeth (Upper teeth) Tube placement confirmation: visualized tube passing through cords, equal breath sounds bilaterally, no breath sounds over epigastrium and confirmation by capnometry Intubation complications: difficult intubation and hypoxia Additional comments: Patient was given 160 of propofol. Patient was sedated but her jaw was clenched subsequently she received 50 of rocuronium. First attempt at intubation ET tube of 7.5 was too large. Patient did desaturate into the upper 50s. Patient was bagged with PEEP valve of 10 with eventual return of saturations to 94%. Repeat intubation attempt with 7.0 ET tube. Patient's airway was anterior. An attempt was made to exchange stylette without success. Patient again rapidly desaturated. She was again bagged with a PEEP valve up to 15 with return of on oxygen saturations to 96%. The patient was starting to move in subsequently received 50 mg more of propofol and 4 mg of Versed. Assistance was called due to the difficult intubation. I requested a 6.5 ET tube and a new style at to go with the glide scope. On this attempt I was able to pass the patient's ET tube. Patient's oxygen saturations with bag-valve mask in peep of 15 improved to 96%. The patient was placed on ventilator tidal volume 320 rate of 25 peep of 10 100% FiO2 an oxygen saturations running between 88 and 90%. Patient is given 5 further sedation and paralytic.
[2021-05-31 00:55] LABS: Pneumococcal Antigen Urine Detected (Not Detected)
--- NOTE | 2021-05-31 00:55 | PM.EVENT ---
Event Note Event Note Event Note: 05/31/2021 00:25 Nursing staff notified me just before midnight the patient was breathing 60 times a minute. They request echo speak with the patient as they were concerned that she was going to fatigue and have complete respiratory collapse. The patient was on AVAPS with 100% FiO2 satting 85-90%. The patient kept calling out in distress and her requesting more pain medications in sedation. I went to evaluate the patient and discussed with her that I could not give her more sedation as she was already above the maximum recommended dose of Precedex infusion. I explained the patient that if she was intubated that we could give her her more sedation and give her body a chance to recover. The patient agreed to intubation. Given the patient's history of IV drug use nitro such as propofol for initial drugs for RSI. Patient required paralytic as well as her jaw was clenched. The patient was extremely difficult intubation with an anterior airway and small airway requiring 6.5 ET tube. Patient required repeat dosing of paralytic and sedating medications. Patient was placed on ventilator AC/CMV tidal volume 320 rate of 25 peep of 10 100% FiO2. Post intubation patient's oxygen saturations were 88-90%. Patient still heart rate 140. Blood pressures were elevated. Patient was initially maxed out on fentanyl and Versed. Propofol was added to achieve adequate sedation. Patient was started on Nimbex as well. The patient had ABG performed. Demonstrated pH 7.2/pCO2 69.2/PO2 69/bicarb 27.2/oxy hemoglobin 88%. I subsequently gave orders to increase tidal volume 340 and increased rate to 28. The patient was subsequently placed in the prone position. 40 minutes spent in critical care activities in exclusion of procedures. Due to a high probability of clinically significant, life threatening deterioration, the patient required my highest level of preparedness to intervene emergently and I personally spent this critical care time directly and personally managing the patient. This critical care time included obtaining a history; examining the patient; pulse oximetry; ordering and review of studies; arranging urgent treatment with development of a management plan; evaluation of patient's response to treatment; frequent reassessment; and discussions with other providers. It was exclusive of separately billable procedures and treating other patients and teaching time. Please see Assessment and Plan section and the rest of the note for further information on patient assessment and treatment.
[2021-05-31] MEDS: CISATRACURIUM BESYLATE 200 MG in DEXTROSE 5% 80 ML 7.2 ML IV CONT ×2 (01:00→12:44)
[2021-05-31 01:42] LABS: Alveolar/Arterial O2 Gradient 573.9 mmHg; Base Excess ABG -1.3 mEq/l (+/-2.0); Carboxyhemoglobin 0.3 % THb (0-2.0); Fractional Inspired Oxygen 100 %; HCO3 ABG 27.2 mEq/l (22.0-26.0); Methemoglobin ABG 0.6 %THb (0-1.5); Oxygen Content ABG 11.8 %vol (16.0-22.0); Oxygen Saturation ABG 89.8 % (95.0-100.0); PO2 ABG 69.9 mmHg (80.0-100.0); Reduced Hemoglobin 11.1 %THb (0-5.0); Total Hemoglobin 9.5 g/dL (12.0-18.0)
[2021-05-31 01:45] LABS: Modified Allen's Test Pass; PCO2 ABG 69.2 mmHg (35.0-45.0); Site Drawn RIGHT RADIAL; pH ABG 7.213 (7.350-7.450)
[2021-05-31 01:46] LABS: Arterial Blood Gas PEEP 10 cmH2O; Arterial Blood Gas Tidal Volume 320 ml; Arterial Blood Gas Vent Mode CMV; Arterial Blood Gas Ventilator rate 25 /MIN; Device VENTILATOR
[2021-05-31] MEDS: ALBUTEROL SULFATE NEB 2.5 MG/0.5 ML INH INHALATION ×2 (02:11→08:06)
[2021-05-31] MEDS: IPRATROPIUM BR 0.02% INH SOLN 0.5 MG/2.5 ML VIAL INHALATION ×4 (02:11→21:02)
[2021-05-31] MEDS: CENTRAL LINE FLUSH 10 ML IV PUSH ×2 (05:06→20:03)
[2021-05-31 05:25] LABS: Hematocrit 23.7 % (37.0-47.0); Hemoglobin 7.8 g/dL (12.0-15.0); Mean Corpuscular HGB Conc 32.9 g/dl (32-36); Mean Corpuscular Hemoglobin 29.3 pg (26-34); Mean Corpuscular Volume 89.1 fl (80-100); Mean Platelet Volume 11.1 fl (7.4-10.4); Platelet Count Result 349 k/mm3 (150-375); Red Blood Count 2.66 M/mm3 (4.2-5.4); Red Cell Distribution Width 15.9 % (11.5-14.5); White Blood Count 47.5 K/mm3 (4.5-10.0)
[2021-05-31 05:27] LABS: Alveolar/Arterial O2 Gradient 454.3 mmHg; Base Excess ABG -3.2 mEq/l (+/-2.0); Carboxyhemoglobin 0.8 % THb (0-2.0); Fractional Inspired Oxygen 90 %; HCO3 ABG 26.7 mEq/l (22.0-26.0); Methemoglobin ABG 0.7 %THb (0-1.5); Oxygen Content ABG 11.5 %vol (16.0-22.0); Oxygen Saturation ABG 95.3 % (95.0-100.0); Oxyhemoglobin 93.6 % THb (90.0-100.0); PO2 ABG 102.3 mmHg (80.0-100.0); PO2 FiO2 Ratio Arterial Blood 1.14 %; Reduced Hemoglobin 4.9 %THb (0-5.0); Total Hemoglobin 8.6 g/dL (12.0-18.0)
[2021-05-31 05:30] LABS: pH ABG 7.125 (7.350-7.450)
[2021-05-31 05:31] LABS: Device VENTILATOR; Modified Allen's Test Pass; Site Drawn LEFT RADIAL
[2021-05-31 05:32] LABS: Arterial Blood Gas PEEP 10 cmH2O; Arterial Blood Gas Tidal Volume 340 ml; Arterial Blood Gas Vent Mode CMV; Arterial Blood Gas Ventilator rate 28 /MIN
[2021-05-31 05:36] LABS: Alanine Aminotransferase 42 U/L (4-35); Albumin Level 2.5 g/dL (3.5-5.1); Alkaline Phosphatase 114 U/L (38-126); Anion Gap 0 mmol/L (8-16); Aspartate Amino Transferase 108 U/L (14-36); Bilirubin,Total 2.2 mg/dL (0.2-1.3); Blood Urea Nitrogen 26 mg/dL (7-17); Calcium 7.5 mg/dL (8.4-10.2); Carbon Dioxide 29 mmol/L (22-30); Chloride 102 mmol/L (98-107); Estimated CRCL calculation 120 ml/min; Estimated Glomerular Filt Rate > 60; Glucose 182 mg/dL (65-110); Magnesium 2.2 mg/dL (1.6-2.3); Potassium 4.7 mmol/L (3.4-5.0); Sodium 131 mmol/L (137-145)
--- NOTE | 2021-05-31 08:39 | PM.PNCARD ---
Progress Note: A&P Assessment and Plan (1) Endocarditis: Code(s): I38 - Endocarditis, valve unspecified <TINA Hare - Last Filed: 05/31/21 14:56> Status: Acute <TINA Hare - Last Filed: 05/31/21 14:56> Assessment and Plan: TTE showing small mobile echogenic mass measuring 0.35 cm x 0.49 cm attached to posterior mitral valve leaflet suggests calcified chordate tendinae or vegetation, small mobile circumscribed echogenic mass measuring 0.62 cm x 0.27 cm attached to septal leaflet of tricuspid valve suggests calcified chordae tendinae or vegetation. Concern for endocarditis given clinical scenario and IV drug use. CAMERON would be recommended for further assessment of mitral and tricuspid vegetations. Will hold off on CAMERON since plan is for patient to transfer today Continue IV abx Continue supportive care <TINA Hare - Last Filed: 05/31/21 14:56> (2) Acute respiratory failure with hypoxia: Code(s): J96.01 - Acute respiratory failure with hypoxia <TINA Hare - Last Filed: 05/31/21 14:56> Status: Acute <TINA Hare - Last Filed: 05/31/21 14:56> Assessment and Plan: CT showing diffuse lung disease, left greater than right which may reflect atypical pneumonia and or hypersensitivity pneumonitis. Being treated with IV antibiotics. She is requiring BiPAP support at this point. Management per critical care service. <TINA Hare - Last Filed: 05/31/21 14:56> (3) Pneumonia: Code(s): J18.9 - Pneumonia, unspecified organism <TINA Hare - Last Filed: 05/31/21 14:56> Status: Acute <TINA Hare - Last Filed: 05/31/21 14:56> Assessment and Plan: As above <TINA Hare - Last Filed: 05/31/21 14:56> (4) Sepsis: Code(s): A41.9 - Sepsis, unspecified organism <TINA Hare Last Filed: 05/31/21 14:56> Status: Acute <TINA Hare Last Filed: 05/31/21 14:56> Assessment and Plan: Bcx positive for S. pneumo. Secondary to pneumonia, possible endocarditis. On IV abx per primary service. <TINA Hare Last Filed: 05/31/21 14:56> Subjective Date/time seen: 05/31/21 08:39 <TINA Hare - Last Filed: 05/31/21 14:56> Interval history: Cardiology follow up for endocarditis Unfortunately she decompensated overnight and required intubation. She is now mechanically ventilated and in the prone position. She is requiring fairly high O2 settings but is stable at this point. Per critical care plan is to transfer pt. to [facility] for consideration for ECMO and higher level of care. <TINA Hare - Last Filed: 05/31/21 14:56> Review of Systems Eyes: Eyes: Denies change in vision <TINA Hare - Last Filed: 05/31/21 14:56> ENT: Reports Normal hearing present and Denies headache(s) <TINA Hare Last Filed: 05/31/21 14:56> Cardiovascular: Cardiovascular: Denies chest pain, Denies pedal edema, Denies leg edema, Denies palpitations, Reports dyspnea and Reports dyspnea on exertion <TINA Hare - Last Filed: 05/31/21 14:56> Respiratory: Respiratory: Denies chest congestion, Denies cough, Denies hemoptysis, Reports dyspnea, Reports dyspnea on exertion and Denies wheezing <TINA Hare Last Filed: 05/31/21 14:56> Gastrointestinal: Gastrointestinal: Denies melena and Denies hematochezia <TINA Hare Last Filed: 05/31/21 14:56> Genitourinary: Genitourinary: Denies hematuria, Denies urinary hesitancy and Denies urinary urgency <TINA Hare - Last Filed: 05/31/21 14:56> Musculoskeletal: Musculoskeletal: Reports back pain, Denies arthralgias, Denies joint swelling and Denies numbness <TINA Hare - Last Filed: 05/31/21 14:56> Integumentary/Breasts: Skin/Breast: Denies pruritus, Denies rash and
[2021-05-31 09:05] LABS: Alveolar/Arterial O2 Gradient 311.3 mmHg; Base Excess ABG 3.2 mEq/l (+/-2.0); Fractional Inspired Oxygen 60 %; HCO3 ABG 28.4 mEq/l (22.0-26.0); Oxygen Saturation ABG 92.7 % (95.0-100.0); Oxyhemoglobin 91.7 % THb (90.0-100.0); PCO2 ABG 46.6 mmHg (35.0-45.0); PO2 ABG 65.2 mmHg (80.0-100.0); PO2 FiO2 Ratio Arterial Blood 1.09 %; pH ABG 7.403 (7.350-7.450)
[2021-05-31 09:08] LABS: Device VENTILATOR; Modified Allen's Test Pass; Site Drawn LEFT RADIAL
[2021-05-31 09:09] LABS: Arterial Blood Gas PEEP 10 cmH2O; Arterial Blood Gas Tidal Volume 400 ml; Arterial Blood Gas Vent Mode CMV; Arterial Blood Gas Ventilator rate 30 /MIN
--- NOTE | 2021-05-31 09:27 | WPDINTPN ---
Progress Note: A&P Assessment and Plan (1) Acute respiratory failure with hypoxia: Code(s): J96.01 - Acute respiratory failure with hypoxia Status: Acute Assessment and Plan: Patient presented with shortness of breath and her chest x-ray showed bilateral diffuse infiltrate. Initially she was on 5 L nasal cannula but now on BiPAP. CTA done this morning shows Diffuse lung disease, left greater than right which may reflect atypical pneumonia and/or hypersensitivity pneumonitis which may be drug induced and/or pulmonary edema. Initial differential diagnosis for possible etiology of her lung disease was infectious, hypersensitivity pneumonitis, EVALI, drug-induced ARDS among other possible etiology. She was also started on Solu-Medrol initially on the floor and later was changed to dozing consistent with EVALI Her procalcitonin level came back at 28 Since then, her blood cultures have come back positive for strep pneumonia which is likely the etiology of both pneumonia and endocarditis 05/30 Solu-Medrol was discontinued. Cefepime was changed to IV Rocephin. After discussion with Pulmonary, Levaquin was added to vancomycin and Rocephin 05/30 patient remained on BiPAP for most of the day. She was on 75% FiO2. She was tachypneic but not using accessory muscles and able to speak full sentences when asked. I discussed option of intubation option with patient. I explained her that her respiratory failure has not significantly improved and the that she is requiring BiPAP continuously. I explained her the intubation procedure and the benefits and risks involved with mechanical ventilation. She refused to be intubated at that time. She states that she would be willing to go on mechanical ventilation if there is no other option left. But at that time she felt she was feeling little better as compared to the day before hence did not feel that she needed to go on a ventilator. I requested patient to notified nurse immediately if she changes her mind or feels she is unable to keep up with her breathing. Overnight patient deteriorated with worsening hypoxia and desatting despite 100% FiO2 on BiPAP. Patient at that time agreed proceed with intubation and mechanical ventilation. She was intubated with difficulty was a difficult airway as per sign-out from the physician. Post intubation she was typed had to be chemically paralyzed and then placed in prone position. ABG reviewed -FiO2 dropped to 60. Will wean FiO2 as tolerated Chest x-ray reviewed Continue to keep patient in prone position through the day today 05/27 blood cultures /- Streptococcus pneumoniae Her COVID PCR and rapid flu testing was negative Pending Legionella Urine pneumococcal antigen positive Pulmonary following HIV screen was negative (2) Pneumonia: Code(s): J18.9 - Pneumonia, unspecified organism Status: Acute Assessment and Plan: See above (3) Sepsis: Code(s): A41.9 - Sepsis, unspecified organism Status: Acute Assessment and Plan: secondary to endocarditis patient is being given cautious amount IV fluids due to her tenuous respiratory status continue vancomycin and Rocephin to cover for endocarditis and pneumococcal pneumonia. off Flagyl lactic acid level has normalized (4) Endocarditis: Code(s): I38 - Endocarditis, valve unspecified Status: Acute Assessment and Plan: Her blood cultures are showing strep pneumoniae Echo shows 1. Complete two-dimensional, color flow and Doppler transthoracic echocardiogram is performed. 2. Left ventricular chamber dimension is normal. 3. Left ventricular systolic function is normal, estimated at 60-65%. 4. The left ventricular diastolic function is grade I diastolic dysfunction. 5. E/e' 6 is not elevated. 6. There is trace mitral valve regurgitation. 7. Small mobile echogenic mass measuring 0.35 cm x 0.49 cm attached to posterior mitral valve leaflet edgardog
[2021-05-31] MEDS: cefTRIAXone 2 GM in SODIUM CHLORIDE 0.9% IV 100 ML 200 ML IVPB (09:39)
--- NOTE | 2021-05-31 09:46 | PM.PNPUL ---
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 Agree with vancomycin, ceftriaxone and would add Levaquin until remainder of cultures return. Given the severity of this infection I would favor discontinuation of systemic steroids at this point so as not to immunosuppressed her. She has been vaping juices which she purchased from a vaping store. Her boyfriend tells me that this contains a nicotine substance but he is not sure. The patient denies vaping THC oil at this time. She may have EVALI and steroids may be beneficial for this disease process. However as noted above she has a life-threatening illness with streptococcal bacteremia and I favor discontinuing the steroids. The patient is COVID negative by RT PCR on 05/27/2021 and 05/30/2021. Influenza swab is negative. HIV is negative. Urine Legionella and urine pneumococcal antigens are pending. Bronchoscopy was brought up to the patient and this would certainly require mechanical ventilation and she told the lawn and garden technician that at this time she does not want testing that may result in mechanical ventilation. She has no history of connective tissue disorder and I do not think that this is alveolar hemorrhage. Given pneumococcal bacteremia I will not send serologies or studies for fungal infection at this time. 05/31 Patient deteriorated and now is intubated, sedated with propofol, Versed and fentanyl drips and paralyzed and in the prone position on 60% FiO2 with peep of 10 and sats 98. She remains febrile, her white blood cell count is increased to 47.5, and all 3 of her blood cultures from admission are positive for Streptococcus pneumonia. patient with invasive streptococcal pneumonia with bacteremia and right lower lobe cavitary lung lesion and likely endocarditis. Agree with vancomycin, ceftriaxone 2 g q.12 hours and Levaquin at this time. I still favor with holding steroids. Ventilatory management per hypercarbic and hypoxemic respiratory failure per lawn and garden technician. She continues to deteriorate with medical therapy. I agree with transfer to higher level of care with a facility that has Infectious Disease, cardiothoracic surgeryconsultations and rescue therapies for refractory hypoxemic and hypercarbic respiratory failure. Discussed with Dr. Daigle. Will follow with you Subjective Date/time seen: 05/31/21 09:46 Interval history: 05/30/21 Requesting physician: Dean Daigle MD Reason for consult: hypoxemia and pneumonia Chief complaint: Multifocal Pneumonia, Hypoxia Narrative: 05/30/2021: This is a new pulmonary consult for hypoxemic respiratory failure 30-year-old woman with a history of hepatitis-C,intravenous drug use, vaping, and tobacco use presented to the emergency room on 05/28/2021 with 5 days weakness, shortness of breath, cough, fever, chills, and shivering. She had a white blood cell count that was 5.4, chest x-ray with diffuse interstitial and alveolar infiltrates right greater than left with possible cavity at the right lower lobe, COVID was negative, influenza was negative, BNP was 579, ABG listed at on 90% FiO2 was a pH of 7.47/32/54.procalcitonin later returned at 28.8. she had a CT angiogram of the chest that showed no PE, diffuse bilateral can fluid consolidative infiltrates on t
[2021-05-31] MEDS: MINERAL OIL/WHITE PETROLATUM OINTMENT 1 APPLIC EACH EYE ×2 (09:47→20:01)
--- NOTE | 2021-05-31 09:56 | PM.IMPN ---
Progress Note: A&P Assessment and Plan (1) Sepsis: Code(s): A41.9 - Sepsis, unspecified organism Status: Acute Assessment and Plan: Secondary to pneumonia Early goal-directed therapy ongoing Broad-spectrum antibiotics Cultures positive for Streptococcus Strict I's and O's Antibiotic adjusted Reviewed CT scan of the chest shows positive consolidation Concern for viral/bacterial pneumonia/EVALI VERBAL INDUCED LUNG INJURY Continue IV antibiotics Blood culture positive for strep pneumonia Vanc Rocephin Levaquin pending final recommendation from pulmonology (2) IV drug user: Code(s): F19.90 - Other psychoactive substance use, unspecified, uncomplicated Status: Acute Assessment and Plan: ECHO SHOWS VEGETATION blood culture positive Continue IV antibiotics 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 Plan for CAMERON Cardiology consult (3) Lung infiltrate: Code(s): R91.8 - Other nonspecific abnormal finding of lung field Status: Acute Assessment and Plan: Secondary to streptococcal pneumonia with positive blood culture As above Patient is o broad-spectrum IV antibiotics (4) Altered mental status: Code(s): R41.82 - Altered mental status, unspecified Status: Acute Assessment and Plan: Acute metabolic encephalopathy Likely toxic metabolic secondary to sepsis drug abuse acute hypoxemic respiratory failure sepsis Supportive care (5) Acute respiratory failure with hypoxia: Code(s): J96.01 - Acute respiratory failure with hypoxia Status: Acute Assessment and Plan: Status post BiPAP secondary to pneumonia concern for ARDS patient was intubated on 05/31/2021 (6) Tobacco dependence: Code(s): F17.200 - Nicotine dependence, unspecified, uncomplicated Status: Acute Assessment and Plan: Nicotine patch as needed (7) Hepatitis C: Code(s): B19.20 - Unspecified viral hepatitis C without hepatic coma Status: Acute Assessment and Plan: Patient with high viral load according to previous PCR (8) Abnormal LFTs (liver function tests): Code(s): R79.89 - Other specified abnormal findings of blood chemistry Status: Acute Assessment and Plan: Abnormal AST Total bili 2.2 CT scan of the abdomen negative for acute finding continue to monitor probably related to drug abuse and hepatitis-C Likely secondary to sepsis Hepatitis C contributing as well Subjective Date/time seen: 05/31/21 09:56 Interval history: 30 years old female with past medical history of drug abuse patient she use fentanyl IV 3 times a day presented to the hospital with altered mental status wheezing shortness of breath and cough patient was found to have acute hypoxemic respiratory failure pneumonia hypotension central line was placed in the ER started on broad-spectrum IV antibiotics patient is requiring BiPAP Central wine was placed in a ER central line was retracted by ICU to appropriate location on 05/28/2021 Patient required close monitoring in ICU was transferred to ICU on 05/28/2021 patient continued to be on BiPAP Echo shows positive for vegetations blood cultures positive for Streptococcus pneumonia, pulmonology Critical Care cardiology following plan for CAMERON, patient condition worsened required intubation on 05/31/21 just past midnight, on broad-spectrum IV antibiotics Sedated intubated I am seeing the patient for shortness of breath Exam Narrative: Intubated Chest bilateral wheezing crackles Abdomen nontender nondistended CVS S1 + S2 Lower negative extremity edema Objective Data Vital Signs Vital Signs: Vital Signs - 24 hr 05/30/21 10:00 05/30/21 11:26 05/30/21 12:00 Temperature 98.5 F Pulse Rate 76 65 82 Respiratory Rate 36 H 45 H 45 H Blood Pressure 125/81 117/87 Pulse Oximetry 96 98 94 05/30/21 13:25 05/30/21 13:26 05/30/21 14:00 Temperature Pulse Rate 68 68 68 Respiratory Rate 45 H 32 H 3
--- NOTE | 2021-05-31 10:00 | PC.NURSE ---
received a call from [facility] transfer center. updated them on patient status including vitals, IV drips, and ventilator settings. Transfer center said she is currently on a waitlist and that they had potential movement but would call back and let us know.
[2021-05-31] MEDS: PANTOPRAZOLE SODIUM IV 40 MG VIAL IV PUSH ×2 (10:20→20:02)
[2021-05-31] MEDS: SODIUM CHLORIDE 0.9% IV 500 ML IV CONT (11:40)
[2021-05-31] MEDS: MORPHINE SULFATE (*CRX) 4 MG/ML INJ IV PUSH (12:47)
--- NOTE | 2021-05-31 13:38 | P.PNCROSS_ITS ---
Event Note Event Note Event Note: Patient had increased oxygen requirement with increased in FiO2 to maintain saturation. She was also sinus tachycardia. 500 mL bolus, 4 mg of morphine, 5 mL of propofol was sequentially given to see if this could be from hypovolemia, pain or lack of sedation with no benefit. C hest x-ray was done and did not show any pneumothorax and patient had ET tube in acceptable position. Peep increased to 14, will give a 2.5 mg of Lopressor.
[2021-05-31] MEDS: METOPROLOL TARTRATE INJ 5 MG/5 ML VIAL 2.5 MG IV PUSH (13:48)
--- NOTE | 2021-05-31 22:10 | PC.NURSE ---
Report had been given to Mitch bautista Labadie. Patient to go to room 8304. [facility] air lift team.
[2021-06-01 05:57] LABS: Ionized Calcium 4.3 mg/dL (4.8-5.6)
--- NOTE | 2021-06-01 11:59 | PM.TDS ---
Transfer Discharge Sum: Prov Provider Date of admission: 05/28/21 08:53 Primary care physician: PLAYGROUND DIRECTOR PHYSICIAN Admitting clinician: Jennifer Jones MD Consults: 05/28/21 Consult to Physician Routine Comment: Consulting Provider: Dean Daigle Reason for consultation: respiratory distress Has provider been notified: Yes Consult to Physician Routine Comment: Consulting Provider: Carlo Walker Reason for consultation: Pneumonia on BiPAP Has provider been notified: Yes 05/30/21 Consult to Physician Routine Comment: spoke with dusty about consult Consulting Provider: Brian Stevenson teacher physically impaired/MD group to consult: cardiology Reason for consultation: endocarditis Has provider been notified: Yes DS: Admitting Diagnosis Discharge Date 05/31/21 Admitting Diagnosis Patient was admitted with shortness of breath acute hypoxemic respiratory failure was found to have pneumonia secondary to streptococcal pneumonia blood culture was positive for staph and strep echo was concern for vegetation Cardiology pulmonology instructional services librarian was consulted patient required BiPAP during hospitalization her condition continued to worsen and intubation patient will be transferred to tertiary center for further evaluation and treat DS: Discharge Diagnosis Discharge Diagnosis (1) Sepsis: Code(s): A41.9 - Sepsis, unspecified organism Status: Acute Assessment and Plan: Secondary to pneumonia Early goal-directed therapy ongoing Broad-spectrum antibiotics Cultures positive for Streptococcus Strict I's and O's Antibiotic adjusted Reviewed CT scan of the chest shows positive consolidation Concern for viral/bacterial pneumonia/EVALI VERBAL INDUCED LUNG INJURY Continue IV antibiotics Blood culture positive for strep pneumonia Vanc Rocephin Levaquin pending final recommendation from pulmonology Patient transferred to tertiary center for further evaluation and treat (2) IV drug user: Code(s): F19.90 - Other psychoactive substance use, unspecified, uncomplicated Status: Acute Assessment and Plan: ECHO SHOWS VEGETATION blood culture positive Continue IV antibiotics 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 Plan for CAMERON Cardiology consult (3) Lung infiltrate: Code(s): R91.8 - Other nonspecific abnormal finding of lung field Status: Acute Assessment and Plan: Secondary to streptococcal pneumonia with positive blood culture As above Patient is o broad-spectrum IV antibiotics (4) Altered mental status: Code(s): R41.82 - Altered mental status, unspecified Status: Acute Assessment and Plan: Acute metabolic encephalopathy Likely toxic metabolic secondary to sepsis drug abuse acute hypoxemic respiratory failure sepsis Supportive care (5) Acute respiratory failure with hypoxia: Code(s): J96.01 - Acute respiratory failure with hypoxia Status: Acute Assessment and Plan: Status post BiPAP secondary to pneumonia concern for ARDS patient was intubated on 05/31/2021 (6) Tobacco dependence: Code(s): F17.200 - Nicotine dependence, unspecified, uncomplicated Status: Acute Assessment and Plan: Nicotine patch as needed (7) Hepatitis C: Code(s): B19.20 - Unspecified viral hepatitis C without hepatic coma Status: Acute Assessment and Plan: Patient with high viral load according to previous PCR (8) Abnormal LFTs (liver function tests): Code(s): R79.89 - Other specified abnormal findings of blood chemistry Status: Acute Assessment and Plan: Abnormal AST Total bili 2.2 CT scan of the abdomen negative for acute finding continue to monitor probably related to drug abuse and hepatitis-C Likely secondary to sepsis Hepatitis C contributing as well Transfer Discharge Sum: Med Medications Active and Home Medications: Home Medications No Home Medications 05/28/21 [History Confirme
[2021-06-01 22:00] LABS: Legionella pneumophila Ag Ur Not Detected (Not Detected)
== END 2021-05-31 22:30 | disposition short-term general hospital (02) | DRG 720 ==
LOC: ANHED 20:38 → ANHIMU 05-28 00:14 → ANHICU 06-01 09:51 → ANHIMU 06-01 09:51
PROVIDERS: Internal Medicine; Admitting Provider Internal Medicine; Emergency Provider Emergency Medicine; Visit Provider Internal Medicine
DX: A40.3 Sepsis due to Streptococcus pneumoniae (principal); J96.01 Acute respiratory failure with hypoxia; G93.41 Metabolic encephalopathy; Z20.822 Contact with and (suspected) exposure to COVID-19; F17.210 Nicotine dependence, cigarettes, uncomplicated; Z28.310 Unvaccinated for COVID-19; F17.290 Nicotine dependence, other tobacco product, uncomplicated; R91.8 Other nonspecific abnormal finding of lung field; F19.10 Other psychoactive substance abuse, uncomplicated; B19.20 Unspecified viral hepatitis C without hepatic coma; J18.9 Pneumonia, unspecified organism; R79.89 Other specified abnormal findings of blood chemistry; I38 Endocarditis, valve unspecified; F41.9 Anxiety disorder, unspecified; I87.2 Venous insufficiency (chronic) (peripheral)
CPT/HCPCS: 31500; 36415; 36556; 36569; 36600; 71045; 71275; 74177; 80048; 80053; 80202; 80307; 81001; 82330; 82375; 82805; 83050; 83605; 83735; 83880; 84145; 84703; 85025; 85027; 85610; 85730; 86703; 87040; 87147; 87181; 87186; 87449; 87804; 87899; 93005; 93306; 94002; 94003; 94640; 96365; 96366; 96367; 96368; 96375; 99285; A9270; C1751; C9113; C9803; G0378; G0432; J0131; J0610; J0692; J0696; J1650; J1940; J1956; J2060; J2250; J2270; J2543; J2704; J2920; J2930; J3010; J3370; J3480; J7030; J7040; J7042; Q9967; U0003; U0005